=== PATIENT | male | born 1965 | race Caucasian/White ===

== ENCOUNTER 2019-04-25 12:07 | Inpatient (IN) | payer BC, MEDICARE ==
--- NOTE | 2019-04-25 12:54 | ED ---
General Adult HPI - General Source: patient, RN notes reviewed Mode of arrival: ambulatory Limitations: no limitations <Joe Batista - Last Filed: 04/25/19 12:49> <Buddy Cadena - Last Filed: 04/25/19 16:45> - General Stated complaint: poss kidney problems/high blood pressure Time Seen by Provider: 04/25/19 12:48 - History of Present Illness Initial comments: 54 year old male presents to the emergency Department with chief complaint of dizziness, nausea, headaches, possible renal failure. Patient was seen by PCP secondary not feeling well. Patient states they did a urinalysis and they're concerned that his urine was very dark. He has no history of kidney disease or liver disease. Patient states symptoms clearing of the left ear. (Joe Batista) 54-year-old male with chief complaint of dark urine. Patient states that for the past 2 days his urine has been the color of colon. He states all he drinks his Coca-Cola and Werners. He has no history of renal disease no history of liver disease. Second complaint of headache which has been present for the past 24 hours. Left-sided parietal and occipital headache. No focal numbness or weakness. No vision changes. Patient denies significant vomiting or diarrhea. He has a normal appetite. No fever. (Buddy Cadena) - Related Data Allergies Allergy/AdvReac Type Severity Reaction Status Date / Time No Known Allergies Allergy Verified 04/25/19 12:50 Review of Systems ROS Other: All systems not noted in ROS Statement are negative. <Joe Batista - Last Filed: 04/25/19 12:49> ROS Other: All systems not noted in ROS Statement are negative. <Buddy Cadena - Last Filed: 04/25/19 16:45> ROS Statement: Those systems with pertinent positive or pertinent negative responses have been documented in the HPI. General Exam General appearance: alert, in no apparent distress Head exam: Present: atraumatic, normocephalic Eye exam: Present: normal appearance, PERRL ENT exam: Present: mucous membranes dry Neck exam: Present: normal inspection, tenderness Respiratory exam: Present: normal lung sounds bilaterally. Absent: respiratory distress, wheezes Cardiovascular Exam: Present: regular rate, normal rhythm GI/Abdominal exam: Present: soft. Absent: distended, tenderness, guarding Extremities exam: Present: normal inspection, normal capillary refill. Absent: pedal edema, joint swelling Neurological exam: Present: alert, oriented X3, CN II-XII intact. Absent: motor sensory deficit Psychiatric exam: Present: normal affect, normal mood Skin exam: Present: warm, dry, intact. Absent: cyanosis, diaphoretic <Buddy Cadena - Last Filed: 04/25/19 16:45> Course Vital Signs 04/25/19 04/25/19 12:48 15:10 Temperature 98.9 F 99.6 F Pulse Rate 86 Respiratory 20 16 Rate Blood Pressure 118/73 174/94 O2 Sat by Pulse 94 L Oximetry Medical Decision Making - Lab Data Result diagrams: 04/25/19 13:34 04/25/19 13:34 <Buddy Cadena - Last Filed: 04/25/19 16:45> - Medical Decision Making 54-year-old male presenting with dark urine. Patient has urinalysis which is positive for large amount of blood with no significant RBCs. This is concerning for myoglobinuria. Further workup reveals rhabdomyolysis with elevated creatinine kinase of 58,463. Patient has leukocytosis of 16. He has a mildly elevated total bili at 1.8. He has transaminitis with AST 1778, ALT 206. He has normal kidney function. He had complained of a headache, CT was obtained is negative for intracranial hemorrhage. Ultrasound negative for diarrhea, bile duct, no signs of acute cholecystitis. Given 2 L normal saline, started on sodium bicarb infusion at a rate of 200 mL/h. He will have close monitoring of import and output. He's admitted to internal medicine, with nephrology placed on consult. Hepatitis panel will be obtained Patient is currently on statin that uncertain of which statin he is on. (Buddy Cadena) - Lab Data Lab Results 04/25/19 04/25/19 04/25/19 Range/Units 13:34 13:34 13:34 WBC 16.0 H (3.8-10.6) k/uL RBC 5.43 (4.30-5.90) m/uL Hgb 17.1 (13.0-17.5) gm/dL Hct 47.5 (39.0-53.0) % MCV 87.6 (80.0-100.0) fL MCH 31.6 (25.0-35.0) pg MCHC 36.0 (31.0-37.0) g/dL RDW 12.4 (11.5-15.5) % Plt Count 192 (150-450) k/uL Neutrophils % 88 % Lymphocytes % 7 % Monocytes % 4 % Eosinophils % 0 % Basophils % 0 % Neutrophils # 14.0 H (1.3-7.7) k/uL Lymphocytes # 1.1 (1.0-4.8) k/uL Monocytes # 0.6 (0-1.0) k/uL Eosinophils # 0.1 (0-0.7) k/uL Basophils # 0.0 (0-0.2) k/uL PT (9.0-12.0) sec INR (<1.2) APTT (22.0-30.0) sec Sodium 140 (137-145) mmol/L Potassium 3.5 (3.5-5.1) mmol/L Chloride 102 (98-107) mmol/L Carbon Dioxide 29 (22-30) mmol/L Anion Gap 9 mmol/L BUN 12 (9-20) mg/dL Creatinine 0.83 (0.66-1.25) mg/dL Est GFR (CKD-EPI)AfAm >90 (>60 ml/min/1.73 sqM) Est GFR (CKD-EPI)NonAf >90 (>60 ml/min/1.73 sqM) Glucose 112 H (74-99) mg/dL Plasma Lactic Acid Edward 2.0 (0.7-2.0) mmol/L Calcium 9.5 (8.4-10.2) mg/dL Total Bilirubin 1.8 H (0.2-1.3) mg/dL AST 1778 H (17-59) U/L ALT 216 H (4-49) U/L Alkaline Phosphatase 104 (38-126) U/L Creatine Kinase (55-170) U/L Total Protein 7.2 (6.3-8.2) g/dL Albumin 4.7 (3.5-5.0) g/dL Lipase (23-300) U/L Urine Color Urine Appearance (Clear) Urine pH (5.0-8.0) Ur Specific [place] (1.001-1.035) Urine Protein (Negative) Urine Glucose (UA) (Negative) Urine Ketones (Negative) Urine Blood (Negative) Urine Nitrite (Negative) Urine Bilirubin (Negative) Urine Urobilinogen (<2.0) mg/dL Ur Leukocyte Esterase (Negative) Urine RBC (0-5) /hpf Urine WBC (0-5) /hpf Ur Squamous Epith Cells (0-4) /hpf Amorphous Sediment (None) /hpf Urine Bacteria (None) /hpf Hyaline Casts (0-2) /lpf Urine Mucus (None) /hpf Acetaminophen <10.0 ug/mL 04/25/19 04/25/19 04/25/19 Range/Units 13:34 13:34 13:34 WBC (3.8-10.6) k/uL RBC (4.30-5.90) m/uL Hgb (13.0-17.5) gm/dL Hct (39.0-53.0) % MCV (80.0-100.0) fL MCH (25.0-35.0) pg MCHC (31.0-37.0) g/dL RDW (11.5-15.5) % Plt Count (150-450) k/uL Neutrophils % % Lymphocytes % % Monocytes % % Eosinophils % % Basophils % % Neutrophils # (1.3-7.7) k/uL Lymphocytes # (1.0-4.8) k/uL Monocytes # (0-1.0) k/uL Eosinophils # (0-0.7) k/uL Basophils # (0-0.2) k/uL PT 10.9 (9.0-12.0) sec INR 1.0 (<1.2) APTT 22.7 (22.0-30.0) sec Sodium (137-145) mmol/L Potassium (3.5-5.1) mmol/L Chloride (98-107) mmol/L Carbon Dioxide (22-30) mmol/L Anion Gap mmol/L BUN (9-20) mg/dL Creatinine (0.66-1.25) mg/dL Est GFR (CKD-EPI)AfAm (>60 ml/min/1.73 sqM) Est GFR (CKD-EPI)NonAf (>60 ml/min/1.73 sqM) Glucose (74-99) mg/dL Plasma Lactic Acid Edward (0.7-2.0) mmol/L Calcium (8.4-10.2) mg/dL Total Bilirubin (0.2-1.3) mg/dL AST (17-59) U/L ALT (4-49) U/L Alkaline Phosphatase (38-126) U/L Creatine Kinase 41207 H* (55-170) U/L Total Protein (6.3-8.2) g/dL Albumin (3.5-5.0) g/dL Lipase (23-300) U/L Urine Color Light Red Urine Appearance Clear (Clear) Urine pH 6.0 (5.0-8.0) Ur Specific [place] 1.011 (1.001-1.035) Urine Protein 2+ H (Negative) Urine Glucose (UA) Negative (Negative) Urine Ketones Negative (Negative) Urine Blood Large H (Negative) Urine Nitrite Negative (Negative) Urine Bilirubin Negative (Negative) Urine Urobilinogen <2.0 (<2.0) mg/dL Ur Leukocyte Esterase Negative (Negative) Urine RBC 1 (0-5) /hpf Urine WBC 2 (0-5) /hpf Ur Squamous Epith Cells <1 (0-4) /hpf Amorphous Sediment Rare H (None) /hpf Urine Bacteria Rare H (None) /hpf Hyaline Casts 1 (0-2) /lpf Urine Mucus Rare H (None) /hpf Acetaminophen ug/mL 04/25/19 Range/Units 13:34 WBC (3.8-10.6) k/uL RBC (4.30-5.90) m/uL Hgb (13.0-17.5) gm/dL Hct (39.0-53.0) % MCV (80.0-100.0) fL MCH (25.0-35.0) pg MCHC (31.0-37.0) g/dL RDW (11.5-15.5) % Plt Count (150-450) k/uL Neutrophils % % Lymphocytes % % Monocytes % % Eosinophils % % Basophils % % Neutrophils # (1.3-7.7) k/uL Lymphocytes # (1.0-4.8) k/uL Monocytes # (0-1.0) k/uL Eosinophils # (0-0.7) k/uL Basophils # (0-0.2) k/uL PT (9.0-12.0) sec INR (<1.2) APTT (22.0-30.0) sec Sodium (137-145) mmol/L Potassium (3.5-5.1) mmol/L Chloride (98-107) mmol/L Carbon Dioxide (22-30) mmol/L Anion Gap mmol/L BUN (9-20) mg/dL Creatinine (0.66-1.25) mg/dL Est GFR (CKD-EPI)AfAm (>60 ml/min/1.73 sqM) Est GFR (CKD-EPI)NonAf (>60 ml/min/1.73 sqM) Glucose (74-99) mg/dL Plasma Lactic Acid Edward (0.7-2.0) mmol/L Calcium (8.4-10.2) mg/dL Total Bilirubin (0.2-1.3) mg/dL AST (17-59) U/L ALT (4-49) U/L Alkaline Phosphatase (38-126) U/L Creatine Kinase (55-170) U/L Total Protein (6.3-8.2) g/dL Albumin (3.5-5.0) g/dL Lipase 99 (23-300) U/L Urine Color Urine Appearance (Clear) Urine pH (5.0-8.0) Ur Specific [place] (1.001-1.035) Urine Protein (Negative) Urine Glucose (UA) (Negative) Urine Ketones (Negative) Urine Blood (Negative) Urine Nitrite (Negative) Urine Bilirubin (Negative) Urine Urobilinogen (<2.0) mg/dL Ur Leukocyte Esterase (Negative) Urine RBC (0-5) /hpf Urine WBC (0-5) /hpf Ur Squamous Epith Cells (0-4) /hpf Amorphous Sediment (None) /hpf Urine Bacteria (None) /hpf Hyaline Casts (0-2) /lpf Urine Mucus (None) /hpf Acetaminophen ug/mL Disposition <Joe Batista - Last Filed: 04/25/19 12:49> Is patient prescribed a controlled substance at d/c from ED?: No Time of Disposition: 16:45 Decision to Admit Reason: Admit from EC Decision Date: 04/25/19 Decision Time: 16:45 <Buddy Cadena - Last Filed: 04/25/19 16:45> Clinical Impression: Rhabdomyolysis, Hepatitis Disposition: ADMITTED IP TO THIS HOSP Condition: Stable Referrals: Paul Kenny MD [Primary Care Provider] - 1-2 days
[2019-04-25] MEDS ORDERED: SODIUM CHLORIDE 0.9% 1,000 ML IV ONE ×2 (13:23→16:13)
[2019-04-25 14:06] LABS: Basophils % (A) 0 %; Eosinophils # (A) 0.1 k/uL (0-0.7); Eosinophils % (A) 0 %; HCT 47.5 % (39.0-53.0); HGB 17.1 gm/dL (13.0-17.5); Lymphocytes # (A) 1.1 k/uL (1.0-4.8); Lymphocytes % (A) 7 %; MCH 31.6 pg (25.0-35.0); MCV 87.6 fL (80.0-100.0); Mean Platelet Volume 7.7; Monocytes # (A) 0.6 k/uL (0-1.0); Monocytes % (A) 4 %; Neutrophils % (A) 88 %; Platelet Count 192 k/uL (150-450); RBC 5.43 m/uL (4.30-5.90); RDW 12.4 % (11.5-15.5)
--- NOTE | 2019-04-25 14:07 | CT ---
EXAMINATION TYPE: CT brain wo con DATE OF EXAM: 04/25/2019 COMPARISON: 07/06/2012 INDICATION: [place] something pop in head, VALDEZ since DLP: 1084.4 mGycm, Automated exposure control for dose reduction was used. CONTRAST: None CT of the brain is performed utilizing 3 mm thick sections through the posterior fossa and 3 mm thick sections through the remaining calvarium. Study is performed within 24 hours of arrival to the hosp [facility]. No abnormal hyperdensity is present to suggest an acute intracranial hemorrhage. No suspicious subara chnoid hemorrhage is identified. Prepontine cistern appears normal. No mass lesion is evident. No acute infarcts are evident. Ventricles and sulci are appropriate for the patient age. Paranasal sinuses and mastoid air cells within the [id number] are clear. IMPRESSIONS: 1. Normal CT Brain
[2019-04-25 14:12] LABS: Amorphous Sediment,Urine Rare /hpf; Appearance,Urine Clear (Clear); Bacteria,Urine Rare /hpf; Bilirubin,Urine Negative (Negative); Blood,Urine Large (Negative); Color,Urine Light Red; Glucose,Urine (UA) Negative (Negative); Hyaline Casts,Urine 1 /lpf (0-2); Ketones,Urine Negative (Negative); Leukocyte Esterase,Urine Negative (Negative); Mucus,Urine Rare /hpf; Nitrite,Urine Negative (Negative); Protein,Urine 2+ (Negative); RBC,Urine 1 /hpf (0-5); Specific Gravity,Urine 1.011 (1.001-1.035); Squamous Epithelial Cell,Urine <1 /hpf (0-4); Urobilinogen,Urine <2.0 mg/dL (<2.0); WBC,Urine 2 /hpf (0-5)
[2019-04-25 14:15] LABS: ALT 216 U/L (4-49); Acetaminophen <10.0 ug/mL; African American GFR (CKD) >90 (>60 ml/min/1.73 sqM); Albumin 4.7 g/dL (3.5-5.0); Alkaline Phosphatase 104 U/L (38-126); Anion Gap 9 mmol/L; Blood Urea Nitrogen 12 mg/dL (9-20); Calcium 9.5 mg/dL (8.4-10.2); Carbon Dioxide 29 mmol/L (22-30); Chloride 102 mmol/L (98-107); Glucose 112 mg/dL (74-99); Non-African American GFR(CKD) >90 (>60 ml/min/1.73 sqM); Potassium 3.5 mmol/L (3.5-5.1); Sodium 140 mmol/L (137-145); Total Bilirubin 1.8 mg/dL (0.2-1.3); Total Protein 7.2 g/dL (6.3-8.2)
[2019-04-25 14:22] LABS: Partial Thromboplastin Time 22.7 sec (22.0-30.0); Prothrombin Time 10.9 sec (9.0-12.0)
[2019-04-25 14:48] LABS: AST 1778 U/L (17-59)
[2019-04-25] MEDS ORDERED: SODIUM CHLORIDE 0.9% 1,000 ML IV SCH (15:15)
--- NOTE | 2019-04-25 16:17 | US ---
EXAMINATION TYPE: US gallbladder DATE OF EXAM: 04/25/2019 COMPARISON: NONE CLINICAL HISTORY: ab pain. Pain, discomfort EXAM MEASUREMENTS: Liver Length: 15.4 cm Gallbladder Wall: 0.2 cm CBD: 0.4 cm Right Kidney: 10.9 x 5.2 x 6.0 cm Limited exam due to patient body habitus Pancreas: Obscured by bowel gas Liver: Scanned through ribs Gallbladder: Multiple nonshadowing echogenic foci seen adjacent to wall, nonmobile, possible multipl e polyps or cholelithiasis. Evidence for sonographic Krishnamurthy's sign: neg CBD: wnl Right Kidney: wnl IMPRESSION: 1. Cholelithiasis and/or gallbladder polyps. Suspicious changes for acute cholecystitis is not eviden t. 2. Mild fatty infiltration liver.
[2019-04-25] MEDS ORDERED: NALOXONE 0.4 MG/ML 1 ML VIAL IV PRN (16:37)
[2019-04-25] MEDS: LORazepam 1 MG TAB PO PRN (20:02)
[2019-04-25] MEDS: DEXTROSE 5% IN WATER 1,000 ML with SODIUM BICARB (1 MEQ/ML) 150 ML IV SCH (21:19)
--- NOTE | 2019-04-25 22:50 | P.HPIM ---
History of Present Illness H&P Date: 04/25/19 Chief Complaint: Dark urine History of presenting complaint: This is a 54-year-old patient of Dr. lainez from [place]. Chronic stable medical conditions include hypertension, hyperlipidemia, bipolar disorder. Patient is at home with his mother and does some intermittent jobs. He shouldn't drinks coke all the time with or drink any water and only has 1 meal a day. Patient also not followed up as a psychiatrist for a while. Patient went to see his family doctor as without feeling well. Was having very dark colored urine like the color of Pepsi. Patient is found to have abnormal labs including very elevated CPK and sent to the ER. Patient's CPK was found to be more than 50,000. Patient started on a bicarbonate drip and IV fluids. To the ER. Patient's mother is at the bedside. Patient feels his bipolar disorder is becoming well uncontrolled with extremely anxious. Her mother things that patient may be overmedicated. Patient is also having ringing in the ears which she's had for some time. Apparently his also been having auditory hallucinations. Patient rather restless during the interview process. Patient has been taking his current lipid-lowering medications for 5-10 years Review of systems: GEN.: Tired EYES: None HEENT: Ringing in the ears and decreased hearing in the left ear NECK: None RESPIRATORY: None CARDIOVASCULAR: None GASTROINTESTINAL: None GENITOURINARY: None MUSCULOSKELETAL: Generalized achiness in the muscles LYMPHATICS: None HEMATOLOGICAL: None PSYCHIATRY: Very anxious NEUROLOGICAL: None Past medical history to include: Hypertension, hyperlipidemia, bipolar Social history: Does still smoke or drink alcohol. Lives with mother. Used to work with [employer] previously. Family history: Reviewed, noncontributory to presentation Physical examination: VITAL SIGNS: 98.9, 86, 20, 1180 73, 94% room air GENERAL: BMI 30.5, laying bed restless. EYES: Pupils equal. Conjunctiva normal. HEENT: External appearance of nose and ears normal, oral cavity grossly normal decreased hearing. NECK: JVD not raised; masses not palpable. HEART: First and second heart sounds are normal; no edema. LUNGS: Respiratory rate normal; clear to auscultation. ABDOMEN: Soft, nontender, liver spleen not palpable, no masses palpable. PSYCH: Alert and oriented x3; mood and affect anxious and restless in bedl. NEUROLOGICAL: Cranial nerves grossly intact; no facial asymmetry, power and sensation grossly intact. LYMPHATICS: No lymph nodes palpable in the axilla and neck INVESTIGATIONS, reviewed in the clinical context: White count 16 hemoglobin 7.1 potassium 3.5 creatinine 0.83 total bilirubin 1.8 AST 1778, ALT 216 Creatinine kinase 95162 Abdominal ultrasound-shows multiple gallstones suggestive and some mild fatty infiltration of the liver Assessment: -Acute severe rhabdomyolysis in a patient who drinks Coca-Cola products 24 hours a day does not drink water. Patient also takes lipid-lowering medication that he is taking for a few years. -Obesity BMI 30.5 -Acute hepatitis, could be ischemic.- -Bipolar disorder uncontrolled with uncontrolled anxiety Plan: Laura started on IV fluids at 200 mL an hour. Electrolytes will be followed closely. Both zetia and Lipitor have been discontinued. Consultation is being made to nephrology, psychiatry also get GI opinion. Care was discussed with the patient and mother. Questions were answered. Lovenox for DVT prophylaxis. Past Medical History Past Medical History: Hypertension History of Any Multi-Drug Resistant Organisms: None Reported Past Surgical History: No Surgical Hx Reported Smoking Status: Never smoker Past Alcohol Use History: None Reported Past Drug Use History: None Reported Medications and Allergies Home Medications Medication Instructions Recorded Confirmed Type Atorvastatin [Lipitor] 20 mg PO DAILY 04/25/19 04/25/19 History Ezetimibe [Zetia] 10 mg PO DAILY 04/25/19 04/25/19 History LORazepam [Ativan] 1 mg PO BID PRN 04/25/19 04/25/19 History Metoprolol Succinate (ER) [Toprol 50 mg PO DAILY 04/25/19 04/25/19 History Xl] Sertraline [Zoloft] 200 mg PO DAILY 04/25/19 04/25/19 History Topiramate [Topamax] 25 mg PO DAILY 04/25/19 04/25/19 History buPROPion HCL [Wellbutrin XL] 150 mg PO DAILY 04/25/19 04/25/19 History Allergies Allergy/AdvReac Type Severity Reaction Status Date / Time No Known Allergies Allergy Verified 04/25/19 18:10 Physical Exam Vitals: Vital Signs Temp Pulse Pulse Resp BP BP Pulse Ox 04/25/19 22:05 99 F 83 18 151/77 97 04/25/19 19:09 16 04/25/19 17:13 98.9 F 80 16 168/87 96 04/25/19 15:10 99.6 F 16 174/94 04/25/19 12:48 98.9 F 86 20 118/73 94 L Intake and Output 04/25/19 04/25/19 04/25/19 06:59 14:59 22:59 Intake Total 1800 Balance 1800 Intake: Amount of Fluid Infused ( 1800 ml) Other: Weight 102.058 kg Results CBC & Chem 7: 04/25/19 13:34 04/25/19 13:34 Labs: Abnormal Lab Results - Last 24 Hours (Table) 04/25/19 04/25/19 04/25/19 Range/Units 13:34 13:34 13:34 WBC 16.0 H (3.8-10.6) k/uL Neutrophils # 14.0 H (1.3-7.7) k/uL Glucose 112 H (74-99) mg/dL Total Bilirubin 1.8 H (0.2-1.3) mg/dL AST 1778 H (17-59) U/L ALT 216 H (4-49) U/L Creatine Kinase (55-170) U/L Urine Protein 2+ H (Negative) Urine Blood Large H (Negative) Amorphous Sediment Rare H (None) /hpf Urine Bacteria Rare H (None) /hpf Urine Mucus Rare H (None) /hpf 04/25/19 Range/Units 13:34 WBC (3.8-10.6) k/uL Neutrophils # (1.3-7.7) k/uL Glucose (74-99) mg/dL Total Bilirubin (0.2-1.3) mg/dL AST (17-59) U/L ALT (4-49) U/L Creatine Kinase 37958 H* (55-170) U/L Urine Protein (Negative) Urine Blood (Negative) Amorphous Sediment (None) /hpf Urine Bacteria (None) /hpf Urine Mucus (None) /hpf
[2019-04-25] MEDS: ENOXAPARIN 40 MG/0.4 ML SYRINGE SQ SCH (23:43)
[2019-04-26] MEDS: LORazepam 1 MG TAB PO PRN ×3 (00:47→20:25)
[2019-04-26 06:21] LABS: Hepatitis A Antibody IgM Non-Reactive (Non-Reactive); Hepatitis B Core IgM Non-Reactive (Non-Reactive); Hepatitis B Surface Antigen Non-Reactive (Non-Reactive); Hepatitis C IgG Antibody Non-Reactive (Non-Reactive)
[2019-04-26] MEDS: DEXTROSE 5% IN WATER 1,000 ML with SODIUM BICARB (1 MEQ/ML) 150 ML IV SCH ×2 (07:20→09:31)
[2019-04-26] MEDS: TOPIRAMATE 25 MG TAB PO SCH (08:08)
[2019-04-26] MEDS: METOPROLOL SUCCINATE (ER) 50 MG TAB.ER.24H PO SCH (08:08)
[2019-04-26 08:51] LABS: Basophils % (A) 0 %; Eosinophils # (A) 0.1 k/uL (0-0.7); Eosinophils % (A) 0 %; HCT 43.7 % (39.0-53.0); HGB 15.5 gm/dL (13.0-17.5); Lymphocytes # (A) 1.6 k/uL (1.0-4.8); Lymphocytes % (A) 11 %; MCH 31.2 pg (25.0-35.0); MCHC 35.5 g/dL (31.0-37.0); MCV 87.9 fL (80.0-100.0); Mean Platelet Volume 7.5; Monocytes # (A) 0.8 k/uL (0-1.0); Monocytes % (A) 5 %; Neutrophils % (A) 82 %; Platelet Count 193 k/uL (150-450); RBC 4.97 m/uL (4.30-5.90); RDW 12.4 % (11.5-15.5); WBC 14.5 k/uL (3.8-10.6)
[2019-04-26] MEDS ORDERED: LORazepam 1 MG TAB PO STA (08:55)
[2019-04-26] MEDS ORDERED: ZIPRASIDONE 20 MG VIAL IM STA (08:55)
[2019-04-26] MEDS ORDERED: EZETIMIBE 10 MG TAB PO SCH (09:00)
[2019-04-26] MEDS ORDERED: SERTRALINE 100 MG TAB PO SCH (09:00)
[2019-04-26] MEDS ORDERED: ATORVASTATIN 20 MG TAB PO SCH (09:00)
[2019-04-26] MEDS ORDERED: buPROPion XL 150 MG TAB.ER.24H PO SCH (09:00)
[2019-04-26 09:05] LABS: ALT 270 U/L (4-49); African American GFR (CKD) >90 (>60 ml/min/1.73 sqM); Albumin 4.3 g/dL (3.5-5.0); Alkaline Phosphatase 87 U/L (38-126); Anion Gap 7 mmol/L; Blood Urea Nitrogen 11 mg/dL (9-20); Calcium 9.1 mg/dL (8.4-10.2); Carbon Dioxide 32 mmol/L (22-30); Chloride 102 mmol/L (98-107); Cholesterol 129 mg/dL (<200); Glucose 109 mg/dL (74-99); HDL Cholesterol 32 mg/dL (40-60); LDL Cholesterol,Calculated 57 mg/dL (0-99); Magnesium 2.1 mg/dL (1.6-2.3); Non-African American GFR(CKD) >90 (>60 ml/min/1.73 sqM); Phosphorus 3.3 mg/dL (2.5-4.5); Potassium 3.5 mmol/L (3.5-5.1); Sodium 141 mmol/L (137-145); Total Bilirubin 1.5 mg/dL (0.2-1.3); Total Protein 6.6 g/dL (6.3-8.2); Triglycerides 200 mg/dL (<150)
--- NOTE | 2019-04-26 11:04 | P.NPCON ---
History of Present Illness - Reason for Consult acute renal failure - History of Present Illness Reason for consultation: Rhabdomyolysis History of present illness: Patient is a 54-year-old male seen in consultation rhabdomyolysis. Patient presented to the hospital with generalized weakness as well as dizziness and nausea. Patient was seen by his PCP. He was noted to have dark urine. Patient is currently resting in bed. He was just given a dose of Geodon and is very difficult to awaken. History is mostly obtained from the chart. No fever or chills. Patient was started on bicarb drip overnight but had to be discontinued as he pulled out multiple IV lines. Patient actually wants to leave. He has a sitter at bedside. Patient's CK level was elevated at 58,463 on admission. Level from today is pending. Patient is not noted to be acidotic. Urinalysis reveals large blood without any RBCs this fits the picture of myoglobinuria. No nausea or vomiting. It appears he was taking Lipitor as well as Zetia at home. Both of those have been discontinued. No history of trauma. Patient's AST and ALT are also noted to be elevated. GFR is at baseline. Patient has history of bipolar disorder. From the record it appears that the patient doesn't drink well water but does drink significant amount of Coca-Cola. Vital signs are stable. General: The patient appeared well nourished and normally developed. HEENT: Head exam is unremarkable. Neck is without jugular venous distension. LUNGS: Lungs are clear to auscultation and percussion. Breath sounds decreased. HEART: Rate and Rhythm are regular. First and second heart sounds normal. No murmurs, rubs or gallops. ABDOMEN: Abdominal exam reveals normal bowel sounds. Non-tender and non- distended. No evidence of peritonitis. EXTREMITITES: No clubbing, cyanosis, or edema. Past Medical History Past Medical History: Hypertension History of Any Multi-Drug Resistant Organisms: None Reported Past Surgical History: No Surgical Hx Reported Past Anesthesia/Blood Transfusion Reactions: No Reported Reaction Smoking Status: Never smoker Past Alcohol Use History: None Reported Past Drug Use History: None Reported Medications and Allergies Home Medications Medication Instructions Recorded Confirmed Type Atorvastatin [Lipitor] 20 mg PO DAILY 04/25/19 04/25/19 History Ezetimibe [Zetia] 10 mg PO DAILY 04/25/19 04/25/19 History LORazepam [Ativan] 1 mg PO BID PRN 04/25/19 04/25/19 History Metoprolol Succinate (ER) [Toprol 50 mg PO DAILY 04/25/19 04/25/19 History Xl] Sertraline [Zoloft] 200 mg PO DAILY 04/25/19 04/25/19 History Topiramate [Topamax] 25 mg PO DAILY 04/25/19 04/25/19 History buPROPion HCL [Wellbutrin XL] 150 mg PO DAILY 04/25/19 04/25/19 History Allergies Allergy/AdvReac Type Severity Reaction Status Date / Time No Known Allergies Allergy Verified 04/25/19 18:10 Physical Exam Vitals: Vital Signs Temp Pulse Pulse Resp BP BP Pulse Ox 04/25/19 22:05 99 F 83 18 151/77 97 04/25/19 19:09 16 04/25/19 17:13 98.9 F 80 16 168/87 96 04/25/19 15:10 99.6 F 16 174/94 04/25/19 12:48 98.9 F 86 20 118/73 94 L Intake and Output 04/25/19 04/26/19 04/26/19 22:59 06:59 14:59 Intake Total 2800 3500 Balance 2800 3500 Intake: IV 1000 3500 Invasive Line 1 1000 3000 Invasive Line 2 500 Amount of Fluid Infused ( 1800 ml) Other: Voiding Method Toilet Toilet # Voids 1 Weight 102.058 kg Results - Lab Results Most recent lab results Calcium 9.1 mg/dL (8.4-10.2) 04/26/19 08:15 Phosphorus 3.3 mg/dL (2.5-4.5) 04/26/19 08:15 Magnesium 2.1 mg/dL (1.6-2.3) 04/26/19 08:15 04/26/19 08:15 04/26/19 08:15 Assessment and Plan Plan: Assessment: 1. Rhabdomyolysis secondary to Lipitor and Zetia. No record of any trauma or injuries. UA reveals large blood without any RBCs which fits with myoglobinuria seen in rhabdomyolysis. 2. Bipolar disorder. 3. Benign hypertension. 4. Transaminitis. Fatty infiltration of the liver noted on ultrasound. Hepatitis panel negative. GI has been consulted. Plan: Discontinue bicarbonate drip. Start normal saline at 150 mL an hour once IV line able to be placed. Follow-up morning CK level and repeat another one in the morning. Cassandra and aDnica held. Thank you for the consultation. I will continue to follow the patient with you during his hospital stay.
[2019-04-26 11:29] LABS: Creatine Kinase 41268 U/L (55-170)
[2019-04-26 11:58] LABS: AST 1944 U/L (17-59)
[2019-04-26] MEDS ORDERED: HALOPERIDOL LACTATE 5 MG/ML 1 ML VIAL IM PRN (15:32)
--- NOTE | 2019-04-26 15:33 | P.GSCN ---
History of Present Illness Consult date: 04/26/19 Reason for Consult: gallstones Requesting physician: Ted Babb History of present illness: CHIEF COMPLAINT: gallstones HISTORY OF PRESENT ILLNESS: 54 year old male who presented to the ER due to dark urine output after being evaluated at his PCP office. Patient was found to have elevated LFTs and a CK over 50,000. Abdominal US was obtained revealing gallstones. General surgery was consulted for further evaluation. Patient examined at the bedside. He denies abdominal pain. Denies nausea or vomiting. Denies known gallbladder disease or known history of gallstones. PAST MEDICAL HISTORY: See list. PAST SURGICAL HISTORY: See list. SOCIAL HISTORY: No illicit drug use. REVIEW OF SYSTEMS: CONSTITUTIONAL: Denies fever or chills. HEENT: Denies blurred vision, vision changes, or eye pain. Denies hemoptysis CARDIOVASCULAR: Denies chest pain or pressure. RESPIRATORY: No shortness of breath. GASTROINTESTINAL: Refer to HPI for pertinent findings HEMATOLOGIC: Denies bleeding disorders. GENITOURINARY: Denies any blood in urine. Reports dark urine. SKIN: Denies pruitis. Denies rash. PHYSICAL EXAM: VITAL SIGNS: Reviewed. GENERAL: Well-developed in no acute distress. HEENT: No sclera icterus. Extraocular movements grossly intact. Moist buccal mucosa. Head is atraumatic, normocephalic. ABDOMEN: Soft. Nondistended. Nontender. NEUROLOGIC: Alert and oriented. LABORATORY DATA: WBC 14.5. Hemoglobin 15.5. Platelet count 193. Sodium 141. Potassium 3.5. Lactic acid 2.0. Bilirubin 1.5. AST 1944. ALT 240. Creatinine kinase 41,268. IMAGING: Gallbladder ultrasound: Multiple non-shadowing echogenic foci seen adjacent wall. Nonmobile. Possible multiple polyps or cholelithiasis. No evidence of acute cholecystitis. ASSESSMENT: 1. Cholelithiasis 2. Leukocytosis 3. Hyperbilirubinemia 4. Transaminitis 5. Rhabdomyolysis PLAN: No immediate surgical intervention as patient is asymptomatic in regards to gallstones. Possible cholecystectomy in the future when patient is medically stable. Continue to monitor LFTs. GI on consult. Await input and recommendations Nurse practitioner note has been reviewed by physician. Signing provider agrees with the documented findings, assessment, and plan of care. Past Medical History Past Medical History: Hypertension History of Any Multi-Drug Resistant Organisms: None Reported Past Surgical History: No Surgical Hx Reported Past Anesthesia/Blood Transfusion Reactions: No Reported Reaction Smoking Status: Never smoker Past Alcohol Use History: None Reported Past Drug Use History: None Reported Medications and Allergies Home Medications Medication Instructions Recorded Confirmed Type Atorvastatin [Lipitor] 20 mg PO DAILY 04/25/19 04/25/19 History Ezetimibe [Zetia] 10 mg PO DAILY 04/25/19 04/25/19 History LORazepam [Ativan] 1 mg PO BID PRN 04/25/19 04/25/19 History Metoprolol Succinate (ER) [Toprol 50 mg PO DAILY 04/25/19 04/25/19 History Xl] Sertraline [Zoloft] 200 mg PO DAILY 04/25/19 04/25/19 History Topiramate [Topamax] 25 mg PO DAILY 04/25/19 04/25/19 History buPROPion HCL [Wellbutrin XL] 150 mg PO DAILY 04/25/19 04/25/19 History Allergies Allergy/AdvReac Type Severity Reaction Status Date / Time chicken derived [Chicken] Allergy Nausea & Verified 04/26/19 11:31 Vomiting & Diarrhea Pork/Porcine Containing Allergy Nausea & Verified 04/26/19 11:31 Products Vomiting & [Pork] Diarrhea Poultry [Arminto] Allergy Nausea & Verified 04/26/19 11:31 Vomiting & Diarrhea Surgical - Exam Vital Signs Temp Pulse Resp BP Pulse Ox 98.9 F 86 20 118/73 94 L 04/25/19 12:48 04/25/19 12:48 04/25/19 12:48 04/25/19 12:48 04/25/19 12:48 Results - Labs 04/26/19 08:15 04/26/19 08:15 Abnormal Lab Results - Last 24 Hours (Table) 04/25/19 04/25/19 04/25/19 Range/Units 13:34 13:34 13:34 WBC (3.8-10.6) k/uL Neutrophils # (1.3-7.7) k/uL Carbon Dioxide (22-30) mmol/L Glucose 112 H (74-99) mg/dL Total Bilirubin 1.8 H (0.2-1.3) mg/dL AST 1778 H (17-59) U/L ALT 216 H (4-49) U/L Creatine Kinase 75770 H* (55-170) U/L Triglycerides (<150) mg/dL HDL Cholesterol (40-60) mg/dL Urine Protein 2+ H (Negative) Urine Blood Large H (Negative) Amorphous Sediment Rare H (None) /hpf Urine Bacteria Rare H (None) /hpf Urine Mucus Rare H (None) /hpf 04/26/19 04/26/19 Range/Units 08:15 08:15 WBC 14.5 H (3.8-10.6) k/uL Neutrophils # 12.0 H (1.3-7.7) k/uL Carbon Dioxide 32 H (22-30) mmol/L Glucose 109 H (74-99) mg/dL Total Bilirubin 1.5 H (0.2-1.3) mg/dL AST 1944 H (17-59) U/L ALT 270 H (4-49) U/L Creatine Kinase 23264 H* (55-170) U/L Triglycerides 200 H (<150) mg/dL HDL Cholesterol 32 L (40-60) mg/dL Urine Protein (Negative) Urine Blood (Negative) Amorphous Sediment (None) /hpf Urine Bacteria (None) /hpf Urine Mucus (None) /hpf Diabetes panel 04/25/19 04/26/19 Range/Units 13:34 08:15 Sodium 140 141 (137-145) mmol/L Potassium 3.5 3.5 (3.5-5.1) mmol/L Chloride 102 102 (98-107) mmol/L Carbon Dioxide 29 32 H (22-30) mmol/L BUN 12 11 (9-20) mg/dL Creatinine 0.83 0.83 (0.66-1.25) mg/dL Glucose 112 H 109 H (74-99) mg/dL Calcium 9.5 9.1 (8.4-10.2) mg/dL AST 1778 H 1944 H (17-59) U/L ALT 216 H 270 H (4-49) U/L Alkaline Phosphatase 104 87 (38-126) U/L Total Protein 7.2 6.6 (6.3-8.2) g/dL Albumin 4.7 4.3 (3.5-5.0) g/dL Triglycerides 200 H (<150) mg/dL HDL Cholesterol 32 L (40-60) mg/dL Calcium panel 04/25/19 04/26/19 Range/Units 13:34 08:15 Calcium 9.5 9.1 (8.4-10.2) mg/dL Phosphorus 3.3 (2.5-4.5) mg/dL Albumin 4.7 4.3 (3.5-5.0) g/dL Pituitary panel 04/25/19 04/26/19 Range/Units 13:34 08:15 Sodium 140 141 (137-145) mmol/L Potassium 3.5 3.5 (3.5-5.1) mmol/L Chloride 102 102 (98-107) mmol/L Carbon Dioxide 29 32 H (22-30) mmol/L BUN 12 11 (9-20) mg/dL Creatinine 0.83 0.83 (0.66-1.25) mg/dL Glucose 112 H 109 H (74-99) mg/dL Calcium 9.5 9.1 (8.4-10.2) mg/dL Adrenal panel 04/25/19 04/26/19 Range/Units 13:34 08:15 Sodium 140 141 (137-145) mmol/L Potassium 3.5 3.5 (3.5-5.1) mmol/L Chloride 102 102 (98-107) mmol/L Carbon Dioxide 29 32 H (22-30) mmol/L BUN 12 11 (9-20) mg/dL Creatinine 0.83 0.83 (0.66-1.25) mg/dL Glucose 112 H 109 H (74-99) mg/dL Calcium 9.5 9.1 (8.4-10.2) mg/dL Total Bilirubin 1.8 H 1.5 H (0.2-1.3) mg/dL AST 1778 H 1944 H (17-59) U/L ALT 216 H 270 H (4-49) U/L Alkaline Phosphatase 104 87 (38-126) U/L Total Protein 7.2 6.6 (6.3-8.2) g/dL Albumin 4.7 4.3 (3.5-5.0) g/dL
--- NOTE | 2019-04-26 15:48 | P.CN ---
Psychiatric Consult - . Consult date: 04/26/19 Consult:: 04/26/19 15:33 IDENTIFYING DATA: This patient is a 54-year-old male who currently lives with his mother is and has one child. Patient is a retired automobile and property underwriter. HISTORY OF PRESENT ILLNESS: The patient presented to the hospital with dizziness, nausea headache and history of dark urine. Patient was found to have rhabdomyolysis with elevated creatinine kinase and was agitated and has transaminitis. Computed tomography scan of patient's head was negative. Nurse taking care of patient claims that patient has been trying to leave has been grossly delusional and needed a Geodon IM dose this morning for agitation. Mother was seen at the bedside and was agreeable to speak to automobile and property underwriter. Mother states that patient has been dealing with "bipolar schizophrenia" for many years and has not been following up with his outpatient psychiatrist. Mother claims that she does not think patient has been taking his medication and has been "secretive". She states that he has not been sleeping for the past week and has been delusional and speaking about political conspiracies more. She also states that a few nights ago patient woke up from a nightmare and states that she told her that "something popped in my head and I hear voices from outer space". Patient was also noted to be disorganized and paranoid on the medical floors believing that she needed to stay away from metal as the government is trying to track a device in people's necks. Patient was asleep however was arousable and agreeable to speak to automobile and property underwriter at the bedside. He was illogical and disorganized in his thoughts and perseverated on political topics and spoke about government corruption. Patient was inappropriate with most of his answers and had poor insight and judgment. At this time patient denies any suicidal or homical ideations, intent or plan. Patient denies any auditory, visual hallucinations. Patient denied any recreational drug use or any cigarettes or alcohol. PAST PSYCHIATRIC HISTORY: Patient has a history of psychosis and has not been following up with his outpatient psychiatrist Dr. Padilla. Patient was on several medications including bupropion and Zoloft and online herbal/organic meds which she had bought. As per mother, patient had a psychotic break in his early 20s and this was the last time he was hospitalized in a psychiatric hospital. Patient denies any previous suicide attempts. PAST MEDICAL HISTORY: Hypertension. ALLERGIES: as per EMR. CHEMICAL DEPENDENCY HISTORY: as per HPI. FAMILY PSYCHIATRIC/SUBSTANCE USE HISTORY: Mother states that she has bipolar along with her mother. She also claims that there is a history of psychosis on patient's father's side. SOCIAL HISTORY: Patient was born and raised in [facility] and moved to [place]. Patient completed high school and finished college. He worked as a automobile and property underwriter and is now retired. Patient is and has 1 kid and currently lives with his mother. MENTAL STATUS EXAM: General Appearance: Patient appears to be stated age is overweight, alert, attempts to cooperate. Poor hygiene and grooming. Behavior: Patient is calmly lying in bed without any agitated behavior. Speech: Patient's speech is fluent and nonpressured. Perseverates on politics and delusions Mood/Affect: Patient reports their mood is "ok", affect is congruent Suicidality/Homicidality: Patient denies having any suicidal or homicidal ideation intent or plan. Perceptions: Patient denies any auditory or visual hallucinations. Though content/process: Patient is grossly delusional and perseverates on political corruption and metal in his neck Memory and concentration: AOX3, grossly intact for the purposes of this session. Can spell "WORLD" backwards Judgment and insight: Poor/impulsive. IMPRESSIONS: Psychosis unspecified, rule out secondary to medications History of schizoaffective disorder PLAN: -Would recommend the following medication changes/additions: We'll start Risperdal 1 mg twice a day for psychosis/mood stabilization. When necessary Haldol when needed for severe agitation. Ativan when necessary for anxiety. -Discontinued patient's antidepressants at this time and will reevaluate her necessity at a later time. -Continue 1:1 sitter for safety -Cannot leave AMA at this time. Patient will need a petition and certification if attempting to leave AMA. -Will continue to follow along as patient is being medically treated for rhabdomyolysis and transaminitis -When medically stable, we will reevaluate patient for possible transfer to psychiatric unit for further treatment.
[2019-04-26] MEDS: risperiDONE 1 MG TAB PO SCH ×2 (16:00→20:25)
[2019-04-26] MEDS: SODIUM CHLORIDE 0.9% 1,000 ML IV SCH ×2 (17:46→23:45)
[2019-04-26] MEDS: MELATONIN 5 MG TABLET PO SCH (20:25)
[2019-04-26] MEDS: ENOXAPARIN 40 MG/0.4 ML SYRINGE SQ SCH (20:25)
--- NOTE | 2019-04-27 01:05 | P.PN ---
Progress Note - Text Progress Note Date: 04/26/19 Chief Complaint: Dark urine Interval history: This is a 54-year-old patient of Dr. lainez from [place]. Chronic stable medical conditions include hypertension, hyperlipidemia, bipolar disorder. Patient is at home with his mother and does some intermittent jobs. He shouldn't drinks coke all the time with or drink any water and only has 1 meal a day. Patient also not followed up as a psychiatrist for a while. Patient went to see his family doctor as without feeling well. Was having very dark colored urine like the color of Pepsi. Patient is found to have abnormal labs including very elevated CPK and sent to the ER. Patient's CPK was found to be more than 50,000. Patient started on a bicarbonate drip and IV fluids. To the ER. Patient's mother is at the bedside. Patient feels his bipolar disorder is becoming well uncontrolled with extremely anxious. Her mother things that patient may be overmedicated. Patient is also having ringing in the ears which she's had for some time. Apparently his also been having auditory hallucinations. Patient rather restless during the interview process. Patient has been taking his current lipid-lowering medications for 5-10 years Admitted with-severe rhabdomyolysis, psychosis, delirium. Patient was started on IV fluids bicarbonate drip. Today-this morning patient is very agitated wanted to leave delirium psychotic. Give the patient 20 mg Geodon IM. Patient's alone after that. When I came to see the patient he was resting sleeping. Mother was at the bedside. Prognosis is systems could not be done as patient is sleeping when Geodon Active Medications Enoxaparin Sodium (Lovenox) 40 mg SQ DAILY@2100 [facility] Last Admin: 04/26/19 20:25 Dose: 40 mg Documented by: Haloperidol Lactate (Haldol) 4 mg IM Q6HR PRN PRN Reason: Agitation or Acute Psychosis Sodium Chloride (Saline 0.9%) 1,000 mls @ 150 mls/hr IV .Q6H40M [facility] Last Admin: 04/26/19 23:45 Dose: Not Given Documented by: Lorazepam (Ativan) 1 mg PO BID PRN PRN Reason: Anxiety Last Admin: 04/26/19 20:25 Dose: 1 mg Documented by: Melatonin (Melatonin) 5 mg PO HS [facility] Last Admin: 04/26/19 20:25 Dose: 5 mg Documented by: Metoprolol Succinate (Toprol Xl) 50 mg PO DAILY [facility] Last Admin: 04/26/19 08:08 Dose: 50 mg Documented by: Naloxone HCl (Narcan) 0.2 mg IV Q2M PRN PRN Reason: Opioid Reversal Risperidone (Risperdal) 1 mg PO BID [facility] Last Admin: 04/26/19 20:25 Dose: 1 mg Documented by: Topiramate (Topamax) 25 mg PO DAILY [facility] Last Admin: 04/26/19 08:08 Dose: 25 mg Documented by: Physical examination: VITAL SIGNS: 97.9, 73, 16, 127/75, 95% GENERAL: Laying in bed somnolent EYES: Pupils equal. Conjunctiva normal. HEENT: External appearance of nose and ears normal, oral cavity grossly normal decreased hearing. NECK: JVD not raised; masses not palpable. HEART: First and second heart sounds are normal; no edema. LUNGS: Respiratory rate normal; clear to auscultation. ABDOMEN: Soft, nontender, liver spleen not palpable, no masses palpable. PSYCH: Could not be assessed. , Agitated earlier INVESTIGATIONS, reviewed in the clinical context: White count 14.5 hemoglobin 13.5 potassium 3.5 creatinine 0.83 Total bilirubin 1.5 AST 1944, ALT 270, creatinine kinase 73735 Previous testing White count 16 hemoglobin 7.1 potassium 3.5 creatinine 0.83 total bilirubin 1.8 AST 1778, ALT 216 Creatinine kinase 58246 Abdominal ultrasound-shows multiple gallstones suggestive and some mild fatty infiltration of the liver Assessment: -Acute severe rhabdomyolysis in a patient who drinks Coca-Cola products 24 hours a day does not drink water. Patient also takes lipid-lowering medication that he is taking for a few years., Slow to respond -Acute delirium -Acute psychosis -Obesity BMI 30.5 -Acute hepatitis, could be ischemic.- -Bipolar disorder uncontrolled with uncontrolled anxiety Plan: Patient received Nilson earlier. Discussed at length with the nurse and the patient's mother. Questions were answered. Psychiatry saw the patient later today. All others antipsychotics were discontinued. Patient's been put on Risperdal. That includes IV fluids. Follow electrolytes and CPK. Patient has a sitter.
[2019-04-27] MEDS: SODIUM CHLORIDE 0.9% 1,000 ML IV SCH ×4 (03:04→22:50)
--- NOTE | 2019-04-27 06:11 | CONS ---
CONSULTATION DATE OF SERVICE: 04/26/2019 REASON FOR CONSULTATION: Elevated LFTs and rhabdomyolysis. HISTORY OF PRESENT ILLNESS: The patient is a 54-year-old pleasant white male with history of hypertension, hyperlipidemia, bipolar disorder was admitted to the hospital because he was not feeling well for the last few days duration and was having some dark colored urine. He went to see his PCP and was noted to have significantly elevated CPK consistent with rhabdomyolysis and hence he was admitted to the hospital for further evaluation. While in the hospital, he was noted to have elevated LFTs and hence we are consulted in regards to this issue. The patient denies any prior history of chronic hepatitis, jaundice, or history of chronic liver disease. He denies any abdominal pain. Reports no medications that he started recently. He reports no high-risk behavior. No history of intravenous drug use. PAST MEDICAL HISTORY: Significant for bipolar disorder, hypertension, hyperlipidemia. PAST SURGICAL HISTORY: None. SOCIAL HISTORY: He denies any smoking or alcohol use. He lives with his mother. FAMILY HISTORY: Unremarkable. MEDICATIONS: Medications at home include Wellbutrin, Topamax, Zoloft, Toprol, Ativan, Zetia, and Lipitor. REVIEW OF SYSTEMS: CARDIOPULMONARY: No chest pain or shortness of breath. GENITOURINARY: No dysuria or hematuria. MUSCULOSKELETAL: Unremarkable other than some lower extremity cramping. ENT/VISION: Unremarkable. CONSTITUTIONAL: No recent weight loss. No fever, chills, night sweats. NEUROLOGY: Unremarkable. PSYCHIATRY: History of delusions, history of anxiety and depression. ENDOCRINE: Unremarkable. PHYSICAL EXAMINATION: On physical examination, he appears comfortable, in no apparent distress. VITAL SIGNS: Are stable. Blood pressure is 127/75, pulse rate 73, temperature 97.9. HEENT EXAMINATION: Unremarkable. Conjunctivae pink. Sclerae anicteric. Oral cavity no lesions. NECK: No JVD or lymph node enlargement. CHEST: Was clear to auscultation. HEART: Regular rate and rhythm. ABDOMEN: Soft. Bowel sounds are positive. No organomegaly. EXTREMITIES: No pedal edema. SKIN: No rashes. NEURO: He is alert and oriented x3. No focal deficits. LABS: Labs from yesterday WBC 16, hemoglobin 17.1, platelets normal. Basic metabolic panel is within normal limits. PT, INR is within normal limits. BUN and creatinine at 12 and 0.83 respectively. T-bilirubin is 1.8, AST of 1778, ALT 216, creatine kinase 58,463. Today T-bilirubin is down to 1.5, AST is 1944, ALT is 270, alkaline phosphatase is 87. CPK is 41,268. Triglycerides are 200. Urinalysis shows large amount of blood. Hepatitis serology for A, B and C are negative. Ultrasound of the abdomen showed gallstones and gallbladder polyps but no changes of acute cholecystitis. Mild fatty liver noted. IMPRESSION: 1. Acute rhabdomyolysis with significant elevation of CPK. The patient was evaluated by Nephrology. It is thought that the rhabdomyolysis probably related to Lipitor and Zetia, which has been discontinued. 2. Elevated LFTs and mild jaundice. Part of the elevated LFTs, especially the SGOT is significantly increased from the enzyme that is muscle origin but part of elevation of serum transaminases can be explained on the basis of decreased perfusion to the liver/mild ischemic hepatitis from volume depletion. 3. History of bipolar disorder. 4. History of hypertension. RECOMMENDATIONS: 1. Continue with aggressive IV hydration as per Nephrology. 2. We will monitor the serum transaminases closely. As mentioned above, hepatitis serologies for A, B and C are negative. 3. Often with improving CPK level, serum transaminases also gradually improve. 4. No need to investigate for any chronic liver disease. 5. We will follow with you closely. Thank you for this consultation. MMRITESHL / GYPSYN: [id number] /
[2019-04-27 07:52] LABS: ALT 198 U/L (4-49); African American GFR (CKD) >90 (>60 ml/min/1.73 sqM); Albumin 3.5 g/dL (3.5-5.0); Alkaline Phosphatase 70 U/L (38-126); Anion Gap 4 mmol/L; Blood Urea Nitrogen 11 mg/dL (9-20); Calcium 8.5 mg/dL (8.4-10.2); Carbon Dioxide 35 mmol/L (22-30); Chloride 103 mmol/L (98-107); Glucose 106 mg/dL (74-99); Non-African American GFR(CKD) >90 (>60 ml/min/1.73 sqM); Potassium 3.3 mmol/L (3.5-5.1); Sodium 142 mmol/L (137-145); Total Bilirubin 0.9 mg/dL (0.2-1.3); Total Protein 5.6 g/dL (6.3-8.2)
[2019-04-27 08:13] LABS: AST 998 U/L (17-59)
[2019-04-27] MEDS: METOPROLOL SUCCINATE (ER) 50 MG TAB.ER.24H PO SCH (08:48)
[2019-04-27] MEDS: TOPIRAMATE 25 MG TAB PO SCH (08:48)
[2019-04-27] MEDS: risperiDONE 1 MG TAB PO SCH (08:48)
[2019-04-27] MEDS ORDERED: POTASSIUM CHLORIDE ER 20 MEQ TAB.ER PO STA (09:22)
--- NOTE | 2019-04-27 09:42 | P.PN ---
Subjective Patient is seen in follow-up for rhabdomyolysis. CK levels are trending down. Currently resting in bed. Denies any pain. Urine output has been good. No hematuria. Vital signs are stable. General: The patient appeared well nourished and normally developed. HEENT: Head exam is unremarkable. Neck is without jugular venous distension. LUNGS: Lungs are clear to auscultation and percussion. Breath sounds decreased. HEART: Rate and Rhythm are regular. First and second heart sounds normal. No murmurs, rubs or gallops. ABDOMEN: Abdominal exam reveals normal bowel sounds. Non-tender and non- distended. No evidence of peritonitis. EXTREMITITES: No clubbing, cyanosis, or edema. Objective - Vital Signs Vital signs: Vital Signs Temp 98.3 F 04/27/19 07:00 Pulse 72 04/27/19 07:00 Resp 17 04/27/19 07:00 BP 111/64 04/27/19 07:00 Pulse Ox 95 04/27/19 07:00 Intake & Output 04/26/19 04/27/19 04/27/19 18:59 06:59 18:59 Intake Total 3792 Balance 3792 Weight 101.8 kg Intake: Intake, IV Titration 1000 Amount Dextrose 5% in Water 1, 1000 000 ml @ 200 mls/hr IV . Q5H45M DORIS with Sodium Bicarb (1 Meq/ml) 150 ml Rx#:[id number] Oral 2792 Other: Voiding Method Toilet Urinal # Voids 1 1 # Bowel Movements 0 - Labs CBC & Chem 7: 04/26/19 08:15 04/27/19 06:42 Labs: Abnormal Lab Results - Last 24 Hours (Table) 04/26/19 04/27/19 Range/Units 08:15 06:42 Potassium 3.3 L (3.5-5.1) mmol/L Carbon Dioxide 35 H (22-30) mmol/L Glucose 106 H (74-99) mg/dL AST 1944 H 998 H (17-59) U/L ALT 198 H (4-49) U/L Creatine Kinase 36143 H* (55-170) U/L Total Protein 5.6 L (6.3-8.2) g/dL Assessment and Plan Plan: Assessment: 1. Rhabdomyolysis secondary to Lipitor and Zetia. Additionally the patient was taking several other supplements including arginine which can also be a contributor factor. CK levels trending down. No record of any trauma or injuries. UA reveals large blood without any RBCs which fits with myoglobinuria seen in rhabdomyolysis. 2. Bipolar disorder. 3. Benign hypertension. Controlled. 4. Transaminitis. Fatty infiltration of the liver noted on ultrasound. Hepatitis panel negative. GI following. Plan: Patient refusing IV fluids. He has pulled out several IV lines. Follow-up morning CK level and repeat another one in the morning. Lipitor and Zetia held. Replace potassium. 40 mEq today.
[2019-04-27 09:51] LABS: Creatine Kinase 9775 U/L (55-170)
--- NOTE | 2019-04-27 13:34 | P.PN ---
Subjective Progress Note Date: 04/27/19 CHIEF COMPLAINT: gallstones HISTORY OF PRESENT ILLNESS: Patient examined at the bedside. He denies abdominal pain. Denies nausea or vomiting. Bilirubin 0.9. AST 998. ALT 198. Creatinine kinase 9775. PHYSICAL EXAM: VITAL SIGNS: Reviewed. GENERAL: Well-developed in no acute distress. HEENT: No sclera icterus. Extraocular movements grossly intact. Moist buccal mucosa. Head is atraumatic, normocephalic. ABDOMEN: Soft. Nondistended. Nontender. NEUROLOGIC: Alert and oriented. ASSESSMENT: 1. Cholelithiasis 2. Leukocytosis 3. Hyperbilirubinemia 4. Transaminitis 5. Rhabdomyolysis PLAN: No immediate surgical intervention as patient is asymptomatic in regards to gallstones. Possible cholecystectomy in the future when patient is medically stable. Continue to monitor LFTs. GI on consult. We will sign off. Please reconsult if needed Patient may follow up with Dr. Ceron outpatient once discharged Nurse practitioner note has been reviewed by physician. Signing provider agrees with the documented findings, assessment, and plan of care. Objective - Vital Signs Vital signs: Vital Signs Temp 98.3 F 04/27/19 07:00 Pulse 72 04/27/19 08:00 Resp 17 04/27/19 08:00 BP 111/64 04/27/19 07:00 Pulse Ox 95 04/27/19 07:00 Intake & Output 04/26/19 04/27/19 04/27/19 18:59 06:59 18:59 Intake Total 3792 Balance 3792 Weight 101.8 kg Intake: Intake, IV Titration 1000 Amount Dextrose 5% in Water 1, 1000 000 ml @ 200 mls/hr IV . Q5H45M DORIS with Sodium Bicarb (1 Meq/ml) 150 ml Rx#:[id number] Oral 2792 Other: Voiding Method Toilet Toilet Urinal Urinal # Voids 1 1 # Bowel Movements 0 - Labs CBC & Chem 7: 04/26/19 08:15 04/27/19 06:42 Labs: Abnormal Lab Results - Last 24 Hours (Table) 04/27/19 Range/Units 06:42 Potassium 3.3 L (3.5-5.1) mmol/L Carbon Dioxide 35 H (22-30) mmol/L Glucose 106 H (74-99) mg/dL AST 998 H (17-59) U/L ALT 198 H (4-49) U/L Creatine Kinase 9775 H* (55-170) U/L Total Protein 5.6 L (6.3-8.2) g/dL
--- NOTE | 2019-04-27 14:09 | P.PN ---
Progress Note - Text Progress Note Date: 04/27/19 Interval History: Patient was seen at the bedside with his mother and mother immediately approac hed the repairer typewriter and wanted to speak to him outside of the room. Mother claims that patient has been doing better on the Risperdal and is more "lucid" however has been sleeping and resting throughout the day and has been eating his meals. Patient was awake and was agreeable to speak to repairer typewriter and was more appropriate. Patient continues to ramble and was illogical and somewhat delusional, yecenia higgins in thought process however was somewhat directable. He explained about having a head injury when he was a child and has been dealing with headaches his whole life. He also spoke about the tinnitus in his ears and how he is going to be seen by the ENT specialist. Patient continues to endorse being "sensitive to metal". He claims that his mood has been gradually improving and denies any problems with the medications at this time. He states that he is "craving cola". Patient was agreeable to have his risperidone increased at nighttime as he had a difficult time sleeping last night. At this time patient denies any suicidal or homical ideations, intent or plan. Patient denies any auditory, visual hallucinations. Mental Status Exam: General Appearance: Patient appears to be stated age is overweight, alert, attempts to cooperate. Poor hygiene and grooming. Behavior: Patient is calmly lying in bed without any agitated behavior. Speech: Patient's speech is fluent and nonpressured. Mildly less preoccupied with delusions. Mood/Affect: Patient reports their mood is "alright", affect is congruent Suicidality/Homicidality: Patient denies having any suicidal or homicidal ideation intent or plan. Perceptions: Patient denies any auditory or visual hallucinations. Though content/process: Patient continues to be delusional, less preoccupied. Tangential/circumstantial in thought process. Rambles frequently. Memory and concentration: AOX3, grossly intact for the purposes of this session. Judgment and insight: Poor/impulsive, mildly improving. Assessment Psychosis unspecified, rule out secondary to medications History of schizoaffective disorder PLAN: -Would recommend the following medication changes/additions: Increased Risperdal 1 mg daily + 2mg nightly for psychosis/mood stabilization. When necessary Haldol when needed for severe agitation. Ativan when necessary for anxiety. Continue with melatonin daily at bedtime for sleep. -ENT consult for tinnitus and hearing difficulties. We'll consider MRI of brain if condition does not improve. Computed tomography scan of head completed on admission was negative. -Continue holding antidepressants at this time. -Continue 1:1 sitter for safety -Cannot leave AMA at this time. Patient will need a petition and certification if attempting to leave AMA. -Will continue to follow along as patient is being medically treated for rhabdomyolysis and transaminitis, condition has been gradually improving with medical treatment. -When medically stable, we will reevaluate patient for possible transfer to psychiatric unit for further treatment.
--- NOTE | 2019-04-27 14:57 | P.PN ---
Progress Note - Text Progress Note Date: 04/27/19 Chief Complaint: Dark urine Interval history: This is a 54-year-old patient of Dr. lainez from [place]. Chronic stable medical conditions include hypertension, hyperlipidemia, bipolar disorder. Patient is at home with his mother and does some intermittent jobs. He shouldn't drinks coke all the time with or drink any water and only has 1 meal a day. Patient also not followed up as a psychiatrist for a while. Patient went to see his family doctor as without feeling well. Was having very dark colored urine like the color of Pepsi. Patient is found to have abnormal labs including very elevated CPK and sent to the ER. Patient's CPK was found to be more than 50,000. Patient started on a bicarbonate drip and IV fluids. To the ER. Patient's mother is at the bedside. Patient feels his bipolar disorder is becoming well uncontrolled with extremely anxious. Her mother things that patient may be overmedicated. Patient is also having ringing in the ears which she's had for some time. Apparently his also been having auditory hallucinations. Patient rather restless during the interview process. Patient has been taking his current lipid-lowering medications for 5-10 years Admitted with-severe rhabdomyolysis, psychosis, delirium. Patient was started on IV fluids bicarbonate drip. Today-doing much better this morning. Laying in bed. Able to converse normally. Less anxious. Mother at the bedside.. Minimal headache if any. Some tinnitus and decreased hearing the left ear. Some of which is chronic. Review of systems: Was done for constitutional, cardiovascular, GI, pulmonary. relevant finding as above Active Medications Enoxaparin Sodium (Lovenox) 40 mg SQ DAILY@2100 [facility] Last Admin: 04/26/19 20:25 Dose: 40 mg Documented by: Haloperidol Lactate (Haldol) 4 mg IM Q6HR PRN PRN Reason: Agitation or Acute Psychosis Sodium Chloride (Saline 0.9%) 1,000 mls @ 150 mls/hr IV .Q6H40M [facility] Last Admin: 04/27/19 03:04 Dose: Not Given Documented by: Lorazepam (Ativan) 1 mg PO BID PRN PRN Reason: Anxiety Last Admin: 04/26/19 20:25 Dose: 1 mg Documented by: Melatonin (Melatonin) 5 mg PO HS [facility] Last Admin: 04/26/19 20:25 Dose: 5 mg Documented by: Metoprolol Succinate (Toprol Xl) 50 mg PO DAILY [facility] Last Admin: 04/27/19 08:48 Dose: 50 mg Documented by: Naloxone HCl (Narcan) 0.2 mg IV Q2M PRN PRN Reason: Opioid Reversal Risperidone (Risperdal) 1 mg PO DAILY [facility] Risperidone (Risperdal) 2 mg PO HS DORIS Topiramate (Topamax) 25 mg PO DAILY [facility] Last Admin: 04/27/19 08:48 Dose: 25 mg Documented by: Physical examination: VITAL SIGNS: 98.3, 72, 17, 1 , 95% room air GENERAL: Laying in bed, awake EYES: Pupils equal. Conjunctiva normal. HEENT: External appearance of nose and ears normal, oral cavity grossly normal decreased hearing. NECK: JVD not raised; masses not palpable. HEART: First and second heart sounds are normal; no edema. LUNGS: Respiratory rate normal; clear to auscultation. ABDOMEN: Soft, nontender, liver spleen not palpable, no masses palpable. PSYCH: AAO 3, slightly anxious INVESTIGATIONS, reviewed in the clinical context: Potassium 3.3 creatinine 0.8 bilirubin 0.9 AST 998 ALT-198 creatine kinase 9775 Previous testing White count 16 hemoglobin 7.1 potassium 3.5 creatinine 0.83 total bilirubin 1.8 AST 1778, ALT 216 Creatinine kinase 30528 Abdominal ultrasound-shows multiple gallstones suggestive and some mild fatty infiltration of the liver Assessment: -Acute severe rhabdomyolysis in a patient who drinks Coca-Cola products 24 hours a day does not drink water. Patient also takes lipid-lowering medication that he is taking for a few years., Improving -Acute delirium, resolved -Acute psychosis, resolved -Obesity BMI 30.5 -Acute hepatitis, could be ischemic, improving.- -Bipolar disorder uncontrolled with uncontrolled anxiety Plan: Discussed with the patient and the mother length. Also discussed at length about eating healthy. We'll have the dietitian come back and talk to the patient and mother. Also discussed with Dr. Austin is from psychiatry. ENT consultation is being done. Patient's headaches are better. We'll get her MRI of the brain. Neurology services not available in the hospital. Possible follow-up outpatient if required. Hopefully patient will be transferred to the psychiatry unit on Wednesday. Repeat labs in the morning. Total time spent today about 45 minutes with over 30 minutes of discussion
[2019-04-27] MEDS ORDERED: ACETAMINOPHEN TAB 325 MG TAB PO PRN (19:21)
[2019-04-27] MEDS: IBUPROFEN 400 MG TAB PO PRN (20:48)
[2019-04-27] MEDS: ENOXAPARIN 40 MG/0.4 ML SYRINGE SQ SCH (22:04)
[2019-04-27] MEDS: MELATONIN 5 MG TABLET PO SCH (22:04)
[2019-04-27] MEDS: risperiDONE 2 MG TAB PO SCH (23:05)
--- NOTE | 2019-04-27 23:08 | PN ---
PROGRESS NOTE DATE OF SERVICE: 04/27/2019 The patient is a 54-year-old pleasant white male admitted to the hospital with acute rhabdomyolysis and elevated LFTs. He also history of bipolar disorder and was seen by psychiatric yesterday. He complains of abdominal pain. He reports no nausea, vomiting. No rectal bleeding or melena. The patient has been refusing IV and he pulled it out 3 times since yesterday. PHYSICAL EXAMINATION: He appears comfortable. No apparent distress. VITAL SIGNS: Stable. Blood pressure is 133/84, pulse , temperature 98.2. HEENT examination unremarkable. Conjunctivae pink. Sclerae anicteric. Oral cavity no lesions. NECK: No JVD or lymph node enlargement. CHEST: Clear to auscultation. HEART: Regular rate and rhythm. ABDOMEN: Soft, nontender, nondistended. Bowel sounds are positive. No organomegaly. EXTREMITIES: No pedal edema. SKIN no rashes. NEUROLOGIC: Alert and oriented x3. No focal deficits. LABS: WBC 14.5, hemoglobin 15.5, platelets are within normal limits. CPK is down to 9775. The AST is down to 998, ALT is down to 198, T-bilirubin is normalized at 0.9. Hepatitis serologies for A, B and C are negative. IMPRESSION: 1. Acute rhabdomyolysis with significantly improved CPK. Patient doing much better. 2. Elevated LFTs. Part of the AST elevation is from muscle origin and some of the elevated LFTs could be from hypoperfusion from severe rhabdomyolysis. LFTs are gradually improving. Hepatitis serologies for A, B and C are negative. 3. History of bipolar disorder. 4. Anxiety and depression. RECOMMENDATIONS: 1. Continue with aggressive hydration. 2. Repeat LFTs in the morning. 3. Monitor CBC on a daily basis. 4. We will follow with you closely. Thank you for this consultation. MMODL / IJN: [id number] /
[2019-04-28] MEDS: SODIUM CHLORIDE 0.9% 1,000 ML IV SCH ×4 (04:34→21:15)
[2019-04-28 08:24] LABS: ALT 147 U/L (4-49); AST 389 U/L (17-59); African American GFR (CKD) >90 (>60 ml/min/1.73 sqM); Albumin 3.7 g/dL (3.5-5.0); Alkaline Phosphatase 74 U/L (38-126); Anion Gap 10 mmol/L; Blood Urea Nitrogen 18 mg/dL (9-20); Carbon Dioxide 24 mmol/L (22-30); Chloride 108 mmol/L (98-107); Glucose 121 mg/dL (74-99); Non-African American GFR(CKD) >90 (>60 ml/min/1.73 sqM); Potassium 3.3 mmol/L (3.5-5.1); Sodium 142 mmol/L (137-145); Total Bilirubin 1.2 mg/dL (0.2-1.3); Total Protein 6.1 g/dL (6.3-8.2)
[2019-04-28] MEDS: METOPROLOL SUCCINATE (ER) 50 MG TAB.ER.24H PO SCH (08:34)
[2019-04-28] MEDS: risperiDONE 1 MG TAB PO SCH (08:35)
[2019-04-28] MEDS: TOPIRAMATE 25 MG TAB PO SCH (08:35)
[2019-04-28 08:36] LABS: Creatine Kinase 1578 U/L (55-170)
--- NOTE | 2019-04-28 10:01 | MR ---
EXAMINATION TYPE: MR brain wo/w con DATE OF EXAM: 04/28/2019 COMPARISON: CT brain 04/25/2019 HISTORY: Headache and ringing in the ears CONTRAST: Performed utilizing 10 mL intravenous Gadavist gadolinium contrast. TECHNIQUE: Multiplanar, multiecho imaging on a 3.0 Chloe magnet is performed through the brain. Stud y is performed within 24 hours of arrival to the hospital. The craniovertebral junction is normal. The pituitary is normal. Diffusion-weighted imaging is performed. No abnormal hyperintensity is present to suggest an acute i ntracranial infarct or acute ischemic change. There is a punctate subcortical white matter change within the left frontal lobe. Series 501 image 20 . This is nonspecific and could be related to microvascular ischemic change, migraine headaches, vasc ulitis among other etiologies. This is not out of proportion to the patient age. Ventricles and sulci are appropriate for the patient age. The internal auditory canals as visualized. Cerebellar pontine angles appear normal. Vertebral basilar system is visualized appears unremarkable . No abnormal enhancement is evident. IMPRESSIONS: 1. Normal MRI brain.
[2019-04-28] MEDS ORDERED: POTASSIUM CHLORIDE ER 20 MEQ TAB.ER PO STA (10:47)
--- NOTE | 2019-04-28 10:48 | P.PN ---
Subjective Patient is seen in follow-up for rhabdomyolysis. CK levels are trending down. Currently resting in bed. Denies any pain. Urine output has been good. No hematuria. Patient did develop a fever last night. Vital signs are stable. General: The patient appeared well nourished and normally developed. HEENT: Head exam is unremarkable. Neck is without jugular venous distension. LUNGS: Lungs are clear to auscultation and percussion. Breath sounds decreased. HEART: Rate and Rhythm are regular. First and second heart sounds normal. No murmurs, rubs or gallops. ABDOMEN: Abdominal exam reveals normal bowel sounds. Non-tender and non- distended. No evidence of peritonitis. EXTREMITITES: No clubbing, cyanosis, or edema. Objective - Vital Signs Vital signs: Vital Signs Temp 98.9 F 04/28/19 08:40 Pulse 92 04/28/19 08:40 Resp 16 04/28/19 08:40 BP 116/67 04/28/19 08:40 Pulse Ox 92 L 04/28/19 08:40 Intake & Output 04/27/19 04/28/19 04/28/19 18:59 06:59 18:59 Intake Total 540 1320 Output Total 200 Balance 540 1120 Intake: Oral 540 1320 Output: Urine 200 Other: Voiding Method Toilet Toilet Urinal Urinal # Voids 1 - Labs CBC & Chem 7: 04/26/19 08:15 04/28/19 07:38 Labs: Abnormal Lab Results - Last 24 Hours (Table) 04/28/19 Range/Units 07:38 Potassium 3.3 L (3.5-5.1) mmol/L Chloride 108 H (98-107) mmol/L Glucose 121 H (74-99) mg/dL Calcium 8.0 L (8.4-10.2) mg/dL AST 389 H (17-59) U/L ALT 147 H (4-49) U/L Creatine Kinase 1578 H* (55-170) U/L Total Protein 6.1 L (6.3-8.2) g/dL Assessment and Plan Plan: Assessment: 1. Rhabdomyolysis secondary to Lipitor and Zetia. Additionally the patient was taking several other supplements including arginine which can also be a contributor factor. CK levels trending down. No record of any trauma or injuries. UA reveals large blood without any RBCs which fits with myoglobinuria seen in rhabdomyolysis. 2. Bipolar disorder. 3. Benign hypertension. Controlled. 4. Transaminitis. Fatty infiltration of the liver noted on ultrasound. Hepatitis panel negative. GI following. 5. Hypokalemia from poor oral intake and saline diuresis. Plan: Decrease rate of normal saline to 75 mL an hour. Lipitor and Zetia held. Replace potassium. 40 mEq today. Repeat electrolytes in the morning.
[2019-04-28] MEDS: IBUPROFEN 400 MG TAB PO PRN (19:20)
[2019-04-28] MEDS: MELATONIN 5 MG TABLET PO SCH (19:21)
[2019-04-28] MEDS: ENOXAPARIN 40 MG/0.4 ML SYRINGE SQ SCH (19:25)
--- NOTE | 2019-04-28 19:45 | PN ---
PROGRESS NOTE DATE OF DICTATION: April 28, 2019 Patient is a 54-year-old pleasant white male admitted to hospital with acute rhabdomyolysis and was also noted to have elevated serum transaminases which are gradually improving. He denies any complaints today. He had some diarrhea this morning. No nausea, vomiting. Has some abdominal pain. PHYSICAL EXAMINATION: He appears comfortable. No apparent distress. VITAL SIGNS: Stable. Blood pressure 154/82, pulse of 97, temperature 98.8. HEENT examination unremarkable. Conjunctivae pink. Sclerae anicteric. Oral cavity no lesions. Neck: No JVD or lymph node enlargement. CHEST: Clear to auscultation. HEART: Regular rate and rhythm. ABDOMEN: Soft, it was non-distended, nontender. Bowel sounds are positive. No organomegaly. EXTREMITIES: No pedal edema. SKIN: No rashes. NEURO: He is alert and oriented x3. No focal deficits. LABS: From today AST is down to 389, ALT is down to 147. CPK is down to 1578, T-bilirubin and alkaline phosphatase are within normal limits. WBC 14.5, hemoglobin 15.5, platelets 193. IMPRESSION: 1. Acute rhabdomyolysis. Dr. Castellon following the patient closely. Appears to be related to Zetia and Lipitor combination, which has been on hold. He is on aggressive IV hydration. CPK is gradually improving. BUN and creatinine normal. 2. Elevated liver function tests secondary to acute rhabdomyolysis. LFTs are gradually improving. 3. History of bipolar disorder. 4. Psychiatric following the patient closely. RECOMMENDATIONS: 1. Continue with aggressive hydration. 2. Repeat LFTs in the morning. 3. We will follow with you closely. Thank you for this consultation. MMODL / IJN: [id number] /
[2019-04-28] MEDS: risperiDONE 2 MG TAB PO SCH (20:43)
--- NOTE | 2019-04-28 22:59 | P.PN ---
Progress Note - Text Progress Note Date: 04/28/19 Chief Complaint: Dark urine Interval history: This is a 54-year-old patient of Dr. lainez from [place]. Chronic stable medical conditions include hypertension, hyperlipidemia, bipolar disorder. Patient is at home with his mother and does some intermittent jobs. He shouldn't drinks coke all the time with or drink any water and only has 1 meal a day. Patient also not followed up as a psychiatrist for a while. Patient went to see his family doctor as without feeling well. Was having very dark colored urine like the color of Pepsi. Patient is found to have abnormal labs including very elevated CPK and sent to the ER. Patient's CPK was found to be more than 50,000. Patient started on a bicarbonate drip and IV fluids. To the ER. Patient's mother is at the bedside. Patient feels his bipolar disorder is becoming well uncontrolled with extremely anxious. Her mother things that patient may be overmedicated. Patient is also having ringing in the ears which she's had for some time. Apparently his also been having auditory hallucinations. Patient rather restless during the interview process. Patient has been taking his current lipid-lowering medications for 5-10 years Admitted with-severe rhabdomyolysis, psychosis, delirium. Patient was started on IV fluids bicarbonate drip. Today-patient had a fever yesterday evening. Nasal congestion. [place] to be viral upper respiratory tract infection. [place] a bit tired today. Otherwise been sleeping better. No more psychotic episodes. Was at the bedside. Review of systems: Was done for constitutional, cardiovascular, GI, pulmonary. relevant finding as above Active Medications Enoxaparin Sodium (Lovenox) 40 mg SQ DAILY@2100 [facility] Last Admin: 04/28/19 19:25 Dose: 40 mg Documented by: Haloperidol Lactate (Haldol) 4 mg IM Q6HR PRN PRN Reason: Agitation or Acute Psychosis Sodium Chloride (Saline 0.9%) 1,000 mls @ 75 mls/hr IV .[id number] [facility] Last Admin: 04/28/19 21:15 Dose: 75 mls/hr Documented by: Ibuprofen (Motrin) 400 mg PO Q6HR PRN PRN Reason: Fever Last Admin: 04/28/19 19:20 Dose: 400 mg Documented by: Lorazepam (Ativan) 1 mg PO BID PRN PRN Reason: Anxiety Last Admin: 04/26/19 20:25 Dose: 1 mg Documented by: Melatonin (Melatonin) 5 mg PO HS [facility] Last Admin: 04/28/19 19:21 Dose: 5 mg Documented by: Metoprolol Succinate (Toprol Xl) 50 mg PO DAILY [facility] Last Admin: 04/28/19 08:34 Dose: 50 mg Documented by: Naloxone HCl (Narcan) 0.2 mg IV Q2M PRN PRN Reason: Opioid Reversal Risperidone (Risperdal) 1 mg PO DAILY [facility] Last Admin: 04/28/19 08:35 Dose: 1 mg Documented by: Risperidone (Risperdal) 2 mg PO HS [facility] Last Admin: 04/28/19 20:43 Dose: 2 mg Documented by: Topiramate (Topamax) 25 mg PO DAILY [facility] Last Admin: 04/28/19 08:35 Dose: 25 mg Documented by: Physical examination: VITAL SIGNS: 98.9, 92, 16, 11 6/67, 92% room air GENERAL: Laying in bed, awake EYES: Pupils equal. Conjunctiva normal. HEENT: External appearance of nose and ears normal, oral cavity grossly normal decreased hearing. Nasal congestion NECK: JVD not raised; masses not palpable. HEART: First and second heart sounds are normal; no edema. LUNGS: Respiratory rate normal; clear to auscultation. ABDOMEN: Soft, nontender, liver spleen not palpable, no masses palpable. PSYCH: AAO 3, slightly anxious INVESTIGATIONS, reviewed in the clinical context: Potassium 3.3 creatinine 0.8 AST-389 ALT-147 creatinine kinase-1578 MRI of the brain-negative Previous testing White count 16 hemoglobin 7.1 potassium 3.5 creatinine 0.83 total bilirubin 1.8 AST 1778, ALT 216 Creatinine kinase 57165 Abdominal ultrasound-shows multiple gallstones suggestive and some mild fatty infiltration of the liver Assessment: -Acute severe rhabdomyolysis in a patient who drinks Coca-Cola products 24 hours a day does not drink water. Patient also takes lipid-lowering medication that he is taking for a few years., Improving -Acute upper respiratory tract infection likely viral. Check influenza A and B. Patient's fevers only complaint on this morning. -Acute delirium, resolved -Acute psychosis, resolved -Obesity BMI 30.5 -Acute hepatitis, could be ischemic, improving.- -Bipolar disorder uncontrolled with uncontrolled anxiety Plan: Bump up to IV fluids to 1 50 mL an hour as patient not eating much today. Because of the viral upper respiratory tract infection. Repeat labs in the morning. Care was discussed in detail with the mother of the patient. Encouraged to ambulate. Second of nasal saw for influenza A and B.
[2019-04-28] MEDS: LACTATED RINGERS 1,000 ML IV SCH (23:52)
[2019-04-29] MEDS: LACTATED RINGERS 1,000 ML IV SCH (03:44)
[2019-04-29 07:13] LABS: ALT 115 U/L (4-49); AST 145 U/L (17-59); African American GFR (CKD) >90 (>60 ml/min/1.73 sqM); Albumin 2.8 g/dL (3.5-5.0); Alkaline Phosphatase 58 U/L (38-126); Anion Gap 7 mmol/L; Blood Urea Nitrogen 13 mg/dL (9-20); Calcium 7.4 mg/dL (8.4-10.2); Carbon Dioxide 23 mmol/L (22-30); Chloride 110 mmol/L (98-107); Creatine Kinase 506 U/L (55-170); Glucose 88 mg/dL (74-99); Magnesium 2.2 mg/dL (1.6-2.3); Non-African American GFR(CKD) >90 (>60 ml/min/1.73 sqM); Potassium 3.1 mmol/L (3.5-5.1); Sodium 140 mmol/L (137-145); Total Bilirubin 0.9 mg/dL (0.2-1.3)
[2019-04-29] MEDS: METOPROLOL SUCCINATE (ER) 50 MG TAB.ER.24H PO SCH (09:41)
[2019-04-29] MEDS: TOPIRAMATE 25 MG TAB PO SCH (09:41)
[2019-04-29] MEDS: risperiDONE 1 MG TAB PO SCH (09:41)
--- NOTE | 2019-04-29 09:50 | P.PN ---
Subjective Patient is seen in follow-up for rhabdomyolysis. CK levels are trending down. Currently resting in bed. Denies any pain. Urine output has been good. No hematuria. Vital signs are stable. General: The patient appeared well nourished and normally developed. HEENT: Head exam is unremarkable. Neck is without jugular venous distension. LUNGS: Lungs are clear to auscultation and percussion. Breath sounds decreased. HEART: Rate and Rhythm are regular. First and second heart sounds normal. No murmurs, rubs or gallops. ABDOMEN: Abdominal exam reveals normal bowel sounds. Non-tender and non- distended. No evidence of peritonitis. EXTREMITITES: No clubbing, cyanosis, or edema. Objective - Vital Signs Vital signs: Vital Signs Temp 98.5 F 04/29/19 07:48 Pulse 72 04/29/19 07:48 Resp 20 04/29/19 07:48 BP 133/87 04/29/19 07:48 Pulse Ox 96 04/29/19 07:48 Intake & Output 04/28/19 04/29/19 04/29/19 18:59 06:59 18:59 Intake Total 1080 200 Balance 1080 200 Intake: Oral 1080 200 Other: Voiding Method Toilet # Voids 3 1 # Bowel Movements 1 - Labs CBC & Chem 7: 04/26/19 08:15 04/29/19 06:16 Labs: Abnormal Lab Results - Last 24 Hours (Table) 04/29/19 Range/Units 06:16 Potassium 3.1 L (3.5-5.1) mmol/L Chloride 110 H (98-107) mmol/L Calcium 7.4 L (8.4-10.2) mg/dL AST 145 H (17-59) U/L ALT 115 H (4-49) U/L Creatine Kinase 506 H (55-170) U/L Total Protein 5.0 L (6.3-8.2) g/dL Albumin 2.8 L (3.5-5.0) g/dL Assessment and Plan Plan: Assessment: 1. Rhabdomyolysis secondary to Lipitor and Zetia. Additionally the patient was taking several other supplements including arginine which can also be a contributor factor. CK levels trending down. No record of any trauma or injuries. UA reveals large blood without any RBCs which fits with myoglobinuria seen in rhabdomyolysis. 2. Bipolar disorder. 3. Benign hypertension. Controlled. 4. Transaminitis. Fatty infiltration of the liver noted on ultrasound. Hepatitis panel negative. GI following. 5. Hypokalemia from poor oral intake and saline diuresis. Plan: Change fluids to normal saline at 75 mL an hour. No need for aggressive IV hydration as rhabdomyolysis is mostly resolved. Lipitor and Zetia held. Replace potassium. 60 mEq today. Repeat electrolytes in the morning.
[2019-04-29] MEDS: POTASSIUM CHLORIDE ER 20 MEQ TAB.ER PO SCH ×3 (10:42→14:05)
[2019-04-29] MEDS: SODIUM CHLORIDE 0.9% 1,000 ML IV SCH (10:43)
--- NOTE | 2019-04-29 11:45 | PN ---
PROGRESS NOTE DATE OF SERVICE: 04/29/2019 Patient is a 54-year-old pleasant white male admitted to the hospital with acute rhabdomyolysis and elevated LFTs. He is doing much better. He also has a history of bipolar disorder and Psychiatry is following the patient closely. He denies any symptoms, complains of poor appetite. PHYSICAL EXAMINATION: Blood pressure 133/87, pulse is 72, temperature 98.5. HEENT: Examination unremarkable. Conjunctivae pink. Sclerae anicteric. Oral cavity, no lesions. NECK: No JVD or lymph node enlargement. CHEST: Clear to auscultation. HEART: Regular rate and rhythm. ABDOMEN: Soft, it was nontender, nondistended. Bowel sounds are positive. No organomegaly. EXTREMITIES: No pedal edema. NEURO: He is alert and oriented x3. No focal deficits. LABS: Labs from today, AST 145, ALT 115, T-bili 0.9, alkaline phosphatase 58, CPK 506. IMPRESSION: 1. Acute rhabdomyolysis with significant improvement over the last four days. Continue with aggressive IV hydration. Lipitor and Zetia are on hold. Dr. Castellon following the patient closely. 2. Elevated liver function tests which are gradually improving. Part of the elevated liver function tests secondary to rhabdomyolysis. Hepatitis serologies for A, B, and C were negative. RECOMMENDATIONS: 1. Continue to monitor liver function tests closely. 2. Regular diet. 3. Increase ambulation. 4. Will follow with you closely. MMODL / IJN: [id number] /
[2019-04-29 13:38] VITALS: BMI 30.4
[2019-04-29] MEDS: IBUPROFEN 400 MG TAB PO PRN (14:14)
[2019-04-29 15:13] VITALS: RESP 16
[2019-04-29] MEDS: ENOXAPARIN 40 MG/0.4 ML SYRINGE SQ SCH (20:32)
[2019-04-29] MEDS: risperiDONE 2 MG TAB PO SCH (20:33)
[2019-04-29] MEDS: MELATONIN 5 MG TABLET PO SCH (20:33)
--- NOTE | 2019-04-30 00:34 | P.PN ---
Progress Note - Text Progress Note Date: 04/29/19 Chief Complaint: Dark urine Interval history: This is a 54-year-old patient of Dr. lainez from [place]. Chronic stable medical conditions include hypertension, hyperlipidemia, bipolar disorder. Patient is at home with his mother and does some intermittent jobs. He shouldn't drinks coke all the time with or drink any water and only has 1 meal a day. Patient also not followed up as a psychiatrist for a while. Patient went to see his family doctor as without feeling well. Was having very dark colored urine like the color of Pepsi. Patient is found to have abnormal labs including very elevated CPK and sent to the ER. Patient's CPK was found to be more than 50,000. Patient started on a bicarbonate drip and IV fluids. To the ER. Patient's mother is at the bedside. Patient feels his bipolar disorder is becoming well uncontrolled with extremely anxious. Her mother things that patient may be overmedicated. Patient is also having ringing in the ears which she's had for some time. Apparently his also been having auditory hallucinations. Patient rather restless during the interview process. Patient has been taking his current lipid-lowering medications for 5-10 years Admitted with-severe rhabdomyolysis, psychosis, delirium. Patient was started on IV fluids bicarbonate drip. Today-laying in bed. No delirium. No psychosis. Not taking to eat much. No fever. Up to the bathroom. Other the bedside.. Review of systems: Was done for constitutional, cardiovascular, GI, pulmonary. relevant finding as above Active Medications Enoxaparin Sodium (Lovenox) 40 mg SQ DAILY@2100 [facility] Last Admin: 04/29/19 20:32 Dose: 40 mg Documented by: Haloperidol Lactate (Haldol) 4 mg IM Q6HR PRN PRN Reason: Agitation or Acute Psychosis Sodium Chloride (Saline 0.9%) 1,000 mls @ 75 mls/hr IV .[id number] DORIS Last Admin: 04/29/19 10:43 Dose: 75 mls/hr Documented by: Ibuprofen (Motrin) 400 mg PO Q6HR PRN PRN Reason: Fever Last Admin: 04/29/19 14:14 Dose: 400 mg Documented by: Lorazepam (Ativan) 1 mg PO BID PRN PRN Reason: Anxiety Last Admin: 04/26/19 20:25 Dose: 1 mg Documented by: Melatonin (Melatonin) 5 mg PO HS [facility] Last Admin: 04/29/19 20:33 Dose: 5 mg Documented by: Metoprolol Succinate (Toprol Xl) 50 mg PO DAILY [facility] Last Admin: 04/29/19 09:41 Dose: 50 mg Documented by: Naloxone HCl (Narcan) 0.2 mg IV Q2M PRN PRN Reason: Opioid Reversal Risperidone (Risperdal) 1 mg PO DAILY [facility] Last Admin: 04/29/19:41 Dose: 1 mg Documented by: Risperidone (Risperdal) 2 mg PO HS [facility] Last Admin: 04/29/19 20:33 Dose: 2 mg Documented by: Topiramate (Topamax) 25 mg PO DAILY [facility] Last Admin: 04/29/19: Dose: 25 mg Documented by: Physical examination: VITAL SIGNS: 98.6, 57, 16, 101/59, 95% room air GENERAL: Laying in bed, awake EYES: Pupils equal. Conjunctiva normal. HEENT: External appearance of nose and ears normal, oral cavity grossly normal decreased hearing. Nasal congestion NECK: JVD not raised; masses not palpable. HEART: First and second heart sounds are normal; no edema. LUNGS: Respiratory rate normal; clear to auscultation. ABDOMEN: Soft, nontender, liver spleen not palpable, no masses palpable. PSYCH: AAO 3, slightly anxious INVESTIGATIONS, reviewed in the clinical context: potassium 3.1 AST-145 ALT-115 creatinine kinase-506 Previous testing White count 16 hemoglobin 7.1 potassium 3.5 creatinine 0.83 total bilirubin 1.8 AST 1778, ALT 216 Creatinine kinase 57713 Abdominal ultrasound-shows multiple gallstones suggestive and some mild fatty infiltration of the liver MRI of the brain-negative Assessment: -Acute severe rhabdomyolysis in a patient who drinks Coca-Cola products 24 hours a day does not drink water. Patient also takes lipid-lowering medication that he is taking for a few years., improved -Acute upper respiratory tract infection likely viral. Check influenza A and B. Patient's fevers only complaint on this morning. -Acute delirium, resolved -Acute psychosis, resolved -Obesity BMI 30.5 -Acute hepatitis, could be ischemic, improving.- -Bipolar disorder uncontrolled with uncontrolled anxiety Plan: patient IV fluids are being cut back. Patient stable to go down to the psych unit. We'll DC the IV fluids later today. Potassium replaced. Check labs in the morning. Discussed WITH the patient and the mother. Patient again encouraged to increase oral intake and ablate.
[2019-04-30 07:16] LABS: ALT 100 U/L (4-49); AST 79 U/L (17-59); African American GFR (CKD) >90 (>60 ml/min/1.73 sqM); Albumin 3.1 g/dL (3.5-5.0); Alkaline Phosphatase 65 U/L (38-126); Anion Gap 7 mmol/L; Blood Urea Nitrogen 13 mg/dL (9-20); Calcium 8.1 mg/dL (8.4-10.2); Carbon Dioxide 22 mmol/L (22-30); Chloride 113 mmol/L (98-107); Creatine Kinase 208 U/L (55-170); Glucose 86 mg/dL (74-99); Non-African American GFR(CKD) >90 (>60 ml/min/1.73 sqM); Potassium 3.5 mmol/L (3.5-5.1); Sodium 142 mmol/L (137-145); Total Bilirubin 0.8 mg/dL (0.2-1.3); Total Protein 5.4 g/dL (6.3-8.2)
[2019-04-30 08:50] VITALS: BP 100/64; PULSE 57; TEMP 98
[2019-04-30] MEDS ORDERED: POTASSIUM CHLORIDE ER 20 MEQ TAB.ER PO STA (10:08)
[2019-04-30] MEDS: SODIUM CHLORIDE 0.9% 1,000 ML IV SCH (10:09)
--- NOTE | 2019-04-30 10:09 | P.PN ---
Subjective Patient is seen in follow-up for rhabdomyolysis. CK levels are trending down. Currently resting in bed. Denies any pain. Urine output has been good. No hematuria. Vital signs are stable. General: The patient appeared well nourished and normally developed. HEENT: Head exam is unremarkable. Neck is without jugular venous distension. LUNGS: Lungs are clear to auscultation and percussion. Breath sounds decreased. HEART: Rate and Rhythm are regular. First and second heart sounds normal. No murmurs, rubs or gallops. ABDOMEN: Abdominal exam reveals normal bowel sounds. Non-tender and non- distended. No evidence of peritonitis. EXTREMITITES: No clubbing, cyanosis, or edema. Objective - Vital Signs Vital signs: Vital Signs Temp 98.0 F 04/30/19 07:00 Pulse 57 L 04/30/19 07:00 Resp 16 04/30/19 07:00 BP 100/64 04/30/19 07:00 Pulse Ox 96 04/30/19 07:00 Intake & Output 04/29/19 04/30/19 04/30/19 18:59 06:59 18:59 Intake Total 600 300 Balance 600 300 Weight 101.8 kg Intake: IV 600 300 Sodium Chloride 0.9% 1, 600 300 000 ml @ 75 mls/hr IV . [id number] [facility] Rx#:[id number] Other: Voiding Method Toilet Toilet # Voids 1 - Labs CBC & Chem 7: 04/26/19 08:15 04/30/19 06:42 Labs: Abnormal Lab Results - Last 24 Hours (Table) 04/30/19 Range/Units 06:42 Chloride 113 H (98-107) mmol/L Calcium 8.1 L (8.4-10.2) mg/dL AST 79 H (17-59) U/L ALT 100 H (4-49) U/L Creatine Kinase 208 H (55-170) U/L Total Protein 5.4 L (6.3-8.2) g/dL Albumin 3.1 L (3.5-5.0) g/dL Assessment and Plan Plan: Assessment: 1. Rhabdomyolysis secondary to Lipitor and Zetia. Additionally the patient was taking several other supplements including arginine which can also be a contributor factor. CK levels trending down. No record of any trauma or injuri es. UA reveals large blood without any RBCs which fits with myoglobinuria seen in rhabdomyolysis. 2. Bipolar disorder. 3. Benign hypertension. Controlled. 4. Transaminitis. Improving. Fatty infiltration of the liver noted on ultrasound. Hepatitis panel negative. GI following. 5. Hypokalemia from poor oral intake and saline diuresis. Better post replacement. Plan: Hep-Lock IV fluids. Lipitor and Zetia held. Replace potassium. 40 mEq today. Stable for discharge from nephrology standpoint.
[2019-04-30] MEDS: TOPIRAMATE 25 MG TAB PO SCH (10:16)
[2019-04-30] MEDS: IBUPROFEN 400 MG TAB PO PRN (10:17)
[2019-04-30] MEDS: risperiDONE 1 MG TAB PO SCH (10:17)
--- NOTE | 2019-04-30 10:22 | PN ---
PROGRESS NOTE DATE OF DICTATION: April 30, 2019. REQUESTING PHYSICIAN: Dr. Babb/Dr. Brad Kenny. HISTORY OF PRESENT ILLNESS: The patient is a 54-year-old pleasant white male admitted to the hospital with acute rhabdomyolysis and acute elevation of LFTs 5 days ago. He has been having aggressive IV hydration. CPK has almost normalized. LFTs have significantly improved. He feels much better today. Abdominal pain has improved. Appetite is improving. No new complaints. PHYSICAL EXAMINATION: Appears comfortable no apparent distress. VITAL SIGNS: Stable. Blood pressure 100/64, pulse rate 57, temperature 98. HEENT examination unremarkable. Conjunctivae pink. Sclerae anicteric. Oral cavity no lesions. NECK: No JVD or lymph node enlargement. CHEST: Clear to auscultation. HEART: Regular rate and rhythm. ABDOMEN: Soft. Bowel sounds are positive. No organomegaly. EXTREMITIES: No pedal edema. SKIN no rashes. NEUROLOGIC: Alert and oriented x3. No focal deficits. LAB: BUN and creatinine normal. AST 79, ALT is 100, T-bilirubin and alkaline phosphatase are normal. CPK is down to 208. IMPRESSION: 1. Acute rhabdomyolysis, improving. 2. Acute hepatitis secondary to acute hepatocellular injury from recent rhabdomyolysis, which has significantly improved. Serum transaminases show an AST of 79, ALT 100 with normal bilirubin. 3. History of anxiety and depression. RECOMMENDATIONS: 1. Monitor LFTs on a close basis. 2. Advance diet as tolerated. 3. We will follow with you closely. Thank you for this consultation. MMODL / GYPSYN: [id number] /
[2019-04-30] MEDS: METOPROLOL SUCCINATE (ER) 50 MG TAB.ER.24H PO SCH (10:27)
[2019-04-30] MEDS ORDERED: busPIRone HCl 5 MG TAB PO SCH (14:38)
--- NOTE | 2019-04-30 14:45 | P.PN ---
Progress Note - Text Progress Note Date: 04/30/19 Interval History: Patient was seen at the bedside today for psychiatric follow-up. Patient was much more directable today calm and cooperative and appropriate. Patient has been taking his medications regularly and has been noted by staff to be improving significantly. Patient's LFTs and CK has been trending down and is now medically discharged. Patient spoke about his behaviors that led him to come in to the hospital including drinking too much cola and not taking his medications. He states that he was also not sleeping well/regularly. Patient was apologetic for his behaviors and states that he is "much better". He states that he is sleeping better and denies any depression. He claims to have mild anxiety at this time. Patient denies any paranoia. At this time patient denies any suicidal or homical ideations, intent or plan. Patient denies any auditory, visual hallucinations. Mental Status Exam: General Appearance: Patient appears to be stated age is overweight, alert, attempts to cooperate. Poor hygiene and grooming. Behavior: Patient is calmly lying in bed without any agitated behavior. Speech: Patient's speech is fluent and nonpressured. Mildly less preoccupied with delusions. Mood/Affect: Patient reports their mood is "alright", affect is congruent Suicidality/Homicidality: Patient denies having any suicidal or homicidal ideation intent or plan. Perceptions: Patient denies any auditory or visual hallucinations. Though content/process: Patient continues to be delusional, less preoccupied. Tangential/circumstantial in thought process. Rambles frequently. Memory and concentration: AOX3, grossly intact for the purposes of this session. Judgment and insight: Poor/impulsive, mildly improving. Assessment Psychosis unspecified, rule out secondary to medications History of schizoaffective disorder PLAN: -At this time patient does not meet inpatient psychiatric criteria. Patient is much more psychiatrically stable and has improved insight and judgment. Patient has a outpatient psychiatrist who he will be following up with in one week. Patient is denying any auditory or visual hallucinations not endorsing any delusions and denies any suicidal or homicidal ideations intent or plan. Patient does contract for safety and also reflects back on his lifestyle habits and agrees with his need to be compliant with his medications. -Would recommend the following medication changes/additions: Changed Risperdal 3 mg nightly for psychosis/mood stabilization. Continue with melatonin daily at bedtime for sleep. Added BuSpar 15 mg twice a day for anxiety. -rhabdomyolysis and transaminitis has improved significantly. -Psychiatry will sign off at this point, please contact with any questions.
[2019-04-30] MEDS ORDERED: risperiDONE 1 MG TAB PO SCH (21:00)
--- NOTE | 2019-04-30 23:58 | P.DS ---
Providers Date of admission: 04/25/19 16:37 Expected date of discharge: 04/30/19 Attending physician: Ted Babb Consults: 04/25/19 16:37 Consult Physician Routine Consulting Provider: Sydney Ortega Consult Reason/Comments: Rhabdomyolysis Do you want consulting provider notified?: Yes 04/25/19 22:36 Consult Physician Routine Consulting Provider: Russ Moreno Consult Reason/Comments: Bipolar disorder, uncontrolled Do you want consulting provider notified?: Yes 04/25/19 22:37 Consult Physician Routine Consulting Provider: Rochelle Thorpe Consult Reason/Comments: Hepatitis Do you want consulting provider notified?: Yes 04/29/19 16:19 Consult Physician Routine Consulting Provider: Russ Moreno Consult Reason/Comments: psych consult Do you want consulting provider notified?: Yes Primary care physician: Paul Kenny [facility] Course: Chief Complaint: Dark urine Hospital course: This is a 54-year-old patient of Dr. kenny from [place]. Chronic stable medical conditions include hypertension, hyperlipidemia, bipolar disorder. Patient is at home with his mother and does some intermittent jobs. He shouldn't drinks coke all the time with or drink any water and only has 1 meal a day. Patient also not followed up as a psychiatrist for a while. Patient went to see his family doctor as without feeling well. Was having very dark colored urine like the color of Pepsi. Patient is found to have abnormal labs including very elevated CPK and sent to the ER. Patient's CPK was found to be more than 50,000. Patient started on a bicarbonate drip and IV fluids. To the ER. Patient's mother is at the bedside. Patient feels his bipolar disorder is becoming well uncontrolled with extremely anxious. Her mother things that patient may be overmedicated. Patient is also having ringing in the ears which she's had for some time. Apparently his also been having auditory hallucinations. Patient rather restless during the interview process. Patient has been taking his current lipid-lowering medications for 5-10 years Admitted with-severe rhabdomyolysis, psychosis, delirium. Patient was started on IV fluids bicarbonate drip. Patient's Zoloft, Wellbutrin, Zetia, Lipitor, were all discontinued. Patient was later started on BuSpar and Risperdal. Patient greatly improved. Creatinine kinase was over 50,000 nearly back to normal before discharge. Also patient elevated liver enzymes, much improved. Several discussions were held with the patient and the mother about lifestyle changes. Today-doing well. Laying in bed comfortable discussed discharge planning with the patient. Discussed with psychiatrist Dr. Moreno. Okay to discharge the patient home. She will follow to psychiatrist Dr. Padilla. Also with GI. Also patient seen by dietitian. Discussion and discharge planning more than 35 minutes Consultation: Dr. Moreno from psychiatry Dr. Jackie Thorpe from GI Dr. Castellon from nephrology Physical examination: VITAL SIGNS: 98, 57, 16, 100/64, 96% room air GENERAL: Comfortable EYES: Pupils equal. Conjunctiva normal. HEENT: External appearance of nose and ears normal, oral cavity grossly normal decreased hearing. Nasal congestion NECK: JVD not raised; masses not palpable. HEART: First and second heart sounds are normal; no edema. LUNGS: Respiratory rate normal; clear to auscultation. ABDOMEN: Soft, nontender, liver spleen not palpable, no masses palpable. PSYCH: AAO 3, motor felt much improved INVESTIGATIONS, reviewed in the clinical context: Potassium 3.5 AST-79 ALT-100 creatinine kinase-208 Previous testing White count 16 hemoglobin 7.1 potassium 3.5 creatinine 0.83 total bilirubin 1.8 AST 1778, ALT 216 Creatinine kinase 38239 Abdominal ultrasound-shows multiple gallstones suggestive and some mild fatty infiltration of the liver MRI of the brain-negative Assessment: -Acute severe rhabdomyolysis in a patient who drinks Coca-Cola products 24 hours a day does not drink water. Patient also takes lipid-lowering medication that he is taking for a few years., Much improved -Acute upper respiratory tract infection likely viral. Negative for influenza A and B. -Acute delirium, resolved -Acute psychosis, resolved -Obesity BMI 30.5 -Acute hepatitis, could be ischemic, improving.- -Bipolar disorder uncontrolled with uncontrolled anxiety, improved Disposition: Home with mother.. Patient Condition at Discharge: Stable Plan - Discharge Summary Discharge Rx Participant: No New Discharge Prescriptions: New Melatonin 5 mg PO HS tablet Ibuprofen [Motrin] 400 mg PO Q6HR PRN tab PRN Reason: Fever busPIRone HCL [Buspar] 15 mg PO BID 28 Days tab risperiDONE [RisperDAL] 3 mg PO HS 28 Days tab Continue Metoprolol Succinate (ER) [Toprol XL] 50 mg PO DAILY Topiramate [Topamax] 25 mg PO DAILY LORazepam [Ativan] 1 mg PO BID PRN PRN Reason: Anxiety Discontinued Sertraline [Zoloft] 200 mg PO DAILY buPROPion HCL [Wellbutrin XL] 150 mg PO DAILY Ezetimibe [Zetia] 10 mg PO DAILY Atorvastatin [Lipitor] 20 mg PO DAILY Discharge Medication List LORazepam [Ativan] 1 mg PO BID PRN 04/25/19 [History] Metoprolol Succinate (ER) [Toprol XL] 50 mg PO DAILY 04/25/19 [History] Topiramate [Topamax] 25 mg PO DAILY 04/25/19 [History] Ibuprofen [Motrin] 400 mg PO Q6HR PRN tab 04/29/19 [Rx] Melatonin 5 mg PO HS tablet 04/29/19 [Rx] busPIRone HCL [Buspar] 15 mg PO BID 28 Days tab 04/30/19 [Rx] risperiDONE [RisperDAL] 3 mg PO HS 28 Days tab 04/30/19 [Rx] Follow up Appointment(s)/Referral(s): dr slime [Other] - 1 Week Tyson Penny DO [Doctor of Osteopathic Medicine] - 1 Week (Patient to call and make appointment in office for audiogram for tinnitus. Test only done in office per Dr. Penny.) Rochelle Thorpe MD [STAFF PHYSICIAN] - 2 Weeks Paul Kenny MD [Primary Care Provider] - 1 Week Adonis Ceron MD [STAFF PHYSICIAN] - 1 Week Patient Instructions/Handouts: Rhabdomyolysis (DC) Activity/Diet/Wound Care/Special Instructions: dc home Discharge Disposition: HOME SELF-CARE
== END 2019-04-30 18:29 | disposition home or self-care (01) | DRG 557 ==
LOC: EC 12:07 → 4SSUR 16:37
PROVIDERS: ADMIT Hospitalist; ATTEND Hospitalist
DX: M62.82 Rhabdomyolysis (principal); K72.00 Acute and subacute hepatic failure without coma; E87.2 Acidosis; N17.9 Acute kidney failure, unspecified; E66.9 Obesity, unspecified; E78.5 Hyperlipidemia, unspecified; E86.9 Volume depletion, unspecified; E87.6 Hypokalemia; F25.9 Schizoaffective disorder, unspecified; F31.9 Bipolar disorder, unspecified; F41.9 Anxiety disorder, unspecified; H93.19 Tinnitus, unspecified ear; I10 Essential (primary) hypertension; J06.9 Acute upper respiratory infection, unspecified; K75.89 Other specified inflammatory liver diseases; K76.0 Fatty (change of) liver, not elsewhere classified; K80.20 Calculus of gallbladder without cholecystitis without obstruction; T46.6X5A Adverse effect of antihyperlipidemic and antiarteriosclerotic drugs, initial encounter; Z53.20 Procedure and treatment not carried out because of patient's decision for unspecified reasons; Z68.30 Body mass index [BMI] 30.0-30.9, adult; Z79.899 Other long term (current) drug therapy; Z87.820 Personal history of traumatic brain injury
CPT/HCPCS: 36415; 70450; 70553; 76705; 80053; 80061; 80074; 80329; 81001; 82550; 83605; 83690; 83735; 84100; 85025; 85610; 85730; 87502; 96360; 96361; 99285

== ENCOUNTER 2019-06-16 07:40 | Day surgery (SDC) | payer MEDICARE ==
[2019-06-15 09:23] VITALS: BMI 30.4
[~2019-06-16 07:40] MED LIST: DEXAMETHASONE SOD PHOSPHATE 10 MG/ML 1 ML VIAL IV ONE; HEPARIN SODIUM,PORCINE 5,000 UNIT/ML 1 ML VIAL SQ ONE; MIDAZOLAM 2 MG/2 ML VIAL IV PRN; ONDANSETRON 4 MG/2 ML VIAL IVP ONE; SCOPOLAMINE 1.5MG/72HR PATCH TRANSDERM ONE
[2019-06-16] MEDS ORDERED: GABAPENTIN 300 MG CAP PO STA (07:43)
[2019-06-16] MEDS ORDERED: ACETAMINOPHEN TAB 500 MG TAB PO STA (07:43)
[2019-06-16] MEDS ORDERED: INDOCYANINE GREEN 25 MG VIAL IV STA (07:43)
[2019-06-16] MEDS ORDERED: TAMSULOSIN 0.4 MG CAP.ER.24H PO STA (07:43)
--- NOTE | 2019-06-16 07:48 | P.GSHP ---
History of Present Illness H&P Date: 06/16/19 CHIEF COMPLAINT: Cholecystitis HISTORY OF PRESENT ILLNESS: The patient is a 54-year-old male who presents with history of epigastric including right upper quadrant abdominal pain. He underwent diagnostic studies for the gallbladder. Separately his clinical picture was consistent with cholecystitis. Now he presents for surgical intervention. PAST MEDICAL HISTORY: Please see list PAST SURGICAL HISTORY: Please see list MEDICATIONS: Please see list ALLERGIES: Denies. SOCIAL HISTORY: No illicit drug use or recent tobacco use FAMILY HISTORY: Pertinent for gallbladder disease REVIEW OF ORGAN SYSTEMS: CONSTITUTIONAL: No reports of fevers or chills. HEENT: Denies any troubles with the vision or hearing. ENDOCRINE: No reports of hypothyroidism. No diabetes. RESPIRATORY: No recent pneumonias. CARDIOVASCULAR: Denies chest pain or palpitations GI: No blood in stools or constipation. MUSCULOSKELETAL: Has occasional joint pain including back pain. NEURO: No seizure disorders or headaches. No recent stroke. PSYCH: No depression or suicidal ideation. HEMATOLOGIC: No personal or family history of DVTs or pulmonary emboli. PHYSICAL EXAM: VITAL SIGNS: Afebrile vital signs stable GENERAL: Well-developed pleasant male in no acute distress. HEENT: No scleral icterus. Extraocular movements grossly intact. Moist buccal mucosa. NECK: Supple without lymphadenopathy. CHEST: Unlabored respirations. Equal bilateral excursions. CARDIOVASCULAR: Regular rate regular rhythm rhythm. Distal 2+ pulses. ABDOMEN: Soft, nondistended. Tender along the epigastrium and right upper quadrant. MUSCULOSKELETAL: No clubbing, cyanosis, or edema. NEURO : No focal or lateralizing signs. Cranial nerves II-12 within normal limits. PSYCH: Alert and oriented to person, place and time. SKIN: Well perfused. Good skin turgor. ASSESSMENT: 1. Epigastric and right upper quadrant abdominal pain 2. Chronic cholecystitis PLAN: 1. Will need a robotic cholecystectomy possible open. Benefits and risks were described. 2. Heparin for DVT prophylaxis 5000 units. 3. Antibiotic prophylaxis. Past Medical History Past Medical History: Hypertension Additional Past Medical History / Comment(s): gall stones, admitted in April 2019 with rhabdomyolysis History of Any Multi-Drug Resistant Organisms: None Reported Past Surgical History: No Surgical Hx Reported Past Anesthesia/Blood Transfusion Reactions: No Reported Reaction Additional Past Anesthesia/Blood Transfusion Reaction / Comment(s): never has had general anesthesia Smoking Status: Never smoker - Past Family History Mother Family Medical History: No Reported History Medications and Allergies Home Medications Medication Instructions Recorded Confirmed Type LORazepam [Ativan] 1 mg PO BID PRN 04/25/19 06/15/19 History Metoprolol Succinate (ER) [Toprol 50 mg PO QAM 04/25/19 06/15/19 History XL] Topiramate [Topamax] 25 mg PO QAM 04/25/19 06/15/19 History Sertraline HCl [Zoloft] 100 mg PO QAM 06/15/19 06/15/19 History buPROPion HCL [Wellbutrin XL] 150 mg PO QAM 06/15/19 06/15/19 History Allergies Allergy/AdvReac Type Severity Reaction Status Date / Time atorvastatin Allergy rhabdomyoly Verified 06/15/19 09:29 sis chicken derived [Chicken] Allergy Nausea & Verified 06/15/19 09:12 Vomiting & Diarrhea Poultry [[place]] Allergy Nausea & Verified 06/15/19 09:12 Vomiting & Diarrhea
[2019-06-16] MEDS: LACTATED RINGERS 1,000 ML IV SCH ×3 (08:05→11:34)
[2019-06-16 08:40] LABS: ALT 23 U/L (4-49); AST 28 U/L (17-59); African American GFR (CKD) >90 (>60 ml/min/1.73 sqM); Albumin 4.7 g/dL (3.5-5.0); Alkaline Phosphatase 107 U/L (38-126); Anion Gap 12 mmol/L; Blood Urea Nitrogen 10 mg/dL (9-20); Calcium 9.3 mg/dL (8.4-10.2); Carbon Dioxide 23 mmol/L (22-30); Chloride 105 mmol/L (98-107); Glucose 110 mg/dL (74-99); Non-African American GFR(CKD) >90 (>60 ml/min/1.73 sqM); Potassium 3.5 mmol/L (3.5-5.1); Sodium 140 mmol/L (137-145); Total Bilirubin 1.4 mg/dL (0.2-1.3); Total Protein 7.4 g/dL (6.3-8.2)
[2019-06-16 08:47] LABS: Basophils % (A) 0 %; Eosinophils % (A) 0 %; HCT 47.5 % (39.0-53.0); HGB 16.6 gm/dL (13.0-17.5); Hyperchromasia Slight; Lymphocytes # (A) 1.9 k/uL (1.0-4.8); Lymphocytes % (A) 22 %; MCH 30.4 pg (25.0-35.0); MCHC 34.9 g/dL (31.0-37.0); Mean Platelet Volume 7.4; Monocytes # (A) 0.5 k/uL (0-1.0); Monocytes % (A) 6 %; Neutrophils % (A) 70 %; Platelet Count 154 k/uL (150-450); RBC 5.46 m/uL (4.30-5.90); RDW 12.3 % (11.5-15.5); WBC 8.5 k/uL (3.8-10.6)
[2019-06-16] MEDS ORDERED: LIDOCAINE 1% INJ 10MG/ML (20 ML MDV) ONE (09:35)
[2019-06-16] MEDS ORDERED: MIDAZOLAM 2 MG/2 ML VIAL ONE (09:35)
[2019-06-16] MEDS ORDERED: NEOSTIGMINE 1 MG/ML 10 ML VIAL ONE (09:35)
[2019-06-16] MEDS ORDERED: GLYCOPYRROLATE 0.2 MG/ML 2 ML VIAL ONE (09:35)
[2019-06-16] MEDS ORDERED: fentaNYL (PF) 50 MCG/ML 2 ML AMP ONE (09:35)
[2019-06-16] MEDS ORDERED: ROCURONIUM BROMIDE 10 MG/ML 5 ML VIAL IV ONE (09:35)
[2019-06-16] MEDS ORDERED: SUCCINYLCHOLINE CHLORIDE 100 MG/5 ML SYR IV ONE (09:35)
[2019-06-16] MEDS ORDERED: HYDROmorphone (PF) 1 MG/ML ONE (09:35)
[2019-06-16] MEDS ORDERED: INDOCYANINE GREEN 25 MG VIAL IV ONE (09:35)
[2019-06-16] MEDS ORDERED: PROPOFOL 10 MG/ML 20 ML VIAL IV ONE (09:35)
[2019-06-16] MEDS ORDERED: LABETALOL 5 MG/ML VIAL MDV ONE (09:35)
[2019-06-16] MEDS ORDERED: LIDOCAINE 1%-EPI 1:100,000 20 ML VIAL SQ ONE (10:02)
[2019-06-16 10:53] VITALS: TEMP 98.7
[2019-06-16] MEDS: HYDROmorphone 0.5 MG/0.5 ML SYRINGE IVP PRN ×2 (10:57→11:02)
[2019-06-16] MEDS ORDERED: KETOROLAC 30 MG/ML 1 ML VIAL IVP PRN (11:03)
[2019-06-16] MEDS ORDERED: HYDROcodone/APAP 5-325MG 1 EACH TAB PO PRN (11:03)
--- NOTE | 2019-06-16 11:12 | P.OP ---
Date of Procedure: 06/16/19 Description of Procedure: SURGEON: WENDY SIMONS MD PREOPERATIVE DIAGNOSES: 1. Right upper quadrant abdominal pain 2. Chronic cholecystitis 3. Elevated liver enzymes 4. Hypertensive heart disease 5. Generalized anxiety disorder 6. Depressive disorder 7. Obesity disease calories, BMI 30.4 POSTOPERATIVE DIAGNOSES: 1. Right upper quadrant abdominal pain 2. Chronic cholecystitis 3. Elevated liver enzymes 4. Hypertensive heart disease 5. Generalized anxiety disorder 6. Depressive disorder 7. Obesity disease calories, BMI 30.4 OPERATION: Robotic-assisted da Joe Xi laparoscopic cholecystectomy, multiport with FIREFLY ESTIMATED BLOOD LOSS: 5 mL. SPECIMENS REMOVED: Gallbladder. COMPLICATIONS: None. OPERATIVE FINDINGS: 1. Chronic cholecystitis INDICATIONS: The patient is a 54-year-old male who presents with cholelcystitis. Surgical intervention with a laparoscopic cholecystectomy was described at length including injury to the biliary tree, bleeding, infection, need for further surgery. Robotic assisted laparoscopic approach was described. Benefits and risks of the procedure including but not limited to bleeding, infection, injury to the biliary tree was described. Informed consent was obtained. DESCRIPTION OF PROCEDURE: Patient was brought to the operating room, placed in supine position. After general induction, the abdomen had been prepped and draped in standard sterile fashion. The robotic da Joe XI system was primed. After a timeout protocol was performed, the patient had been prepped and draped in standard sterile fashion. The patient was injected with indocyanine green. A 5 mm 0 degrees laparoscopic trocar entry was performed along the left upper quadrant. The abdomen insufflated to 15 mmHg pressure which was tolerated well. Diagnostic laparoscopy demonstrated no injury to bowel viscera or mesentery. The liver surface was unremarkable. Next, two 8 mm robotic ports were placed along the right upper abdomen. The camera 8-mm port was maintained along the epigastrium. Another 8 mm port was placed along the left upper abdominal wall after exchanging the 5 mm port. Please note that the ports were placed at least 10 to 15 cm away from the target anatomy of the gallbladder. The robot was docked along the left lateral abdomen. The patient was repositioned in reverse Trendelenburg position. Using a grasper for arm 3, a grasper for arm 4, including hook cautery for arm 1, the robotic system was docked and primed as described. Instruments were interchanged by the miller head assistant wet process including hook cautery, Bovie cautery and clip appliers. I had sat at the console. The gallbladder fundus was retracted over the dome of the liver. Initial attention was brought to the infundibulum which was gently retracted in the inferior lateral approach. Using a grasper, the cystic duct including the cystic artery was carefully skeletonized. FIREFLY was used to identify the cystic artery and cystic structures. A critical view of safety was obtained. Large PLASTIC clips were used throughout the entire case. Using a clip salvage laborer 2 clips were placed proximally, and 1 clip was placed between the infundibulum and cystic duct and divided using cautery. Next, the cystic artery was similarly clipped and cauterized. Electro-Bovie cautery was used to remove the gallbladder from the hepatic fossa. Hemostasis was checked and found to be adequate. The robot was undocked. I re-scrubbed into the case. Using a 10 mm Endo Catch bag via the left upper quadrant incision, the specimen was removed from the abdominal cavity. All pneumoperitoneum instruments were evacuated from the abdominal cavity. The incisions were reapproximated using 4-0 Monocryl in an interrupted subcuticular fashion. Fascial defects were less than 8 mm in size. Please note along the trocar sites, local anesthetic was placed as a field block prior to insertion of all instruments. Liquid glue was applied to the skin. At the end of the procedure needle, sponge, and instrument count had been verified correct by the community service technician. The patient was transferred to postanesthesia care unit in stable condition. Intraoperative films were shared with the patient's family who were very pleased with the level of care. Plan - Discharge Summary Discharge Rx Participant: No New Discharge Prescriptions: New Tamsulosin [Flomax] 0.4 mg PO DAILY #5 cap.er.24h Ibuprofen [Motrin] 600 mg PO Q8HR PRN #30 tab PRN Reason: Pain Acetaminophen Tab [Tylenol Tab] 1,000 mg PO Q6HR PRN #30 tablet PRN Reason: Pain Continue Metoprolol Succinate (ER) [Toprol XL] 50 mg PO QAM Topiramate [Topamax] 25 mg PO QAM LORazepam [Ativan] 1 mg PO BID PRN PRN Reason: Anxiety buPROPion HCL [Wellbutrin XL] 150 mg PO QAM Sertraline HCl [Zoloft] 100 mg PO QAM Discharge Medication List LORazepam [Ativan] 1 mg PO BID PRN 04/25/19 [History] Metoprolol Succinate (ER) [Toprol XL] 50 mg PO QAM 04/25/19 [History] Topiramate [Topamax] 25 mg PO QAM 04/25/19 [History] Sertraline HCl [Zoloft] 100 mg PO QAM 06/15/19 [History] buPROPion HCL [Wellbutrin XL] 150 mg PO QAM 06/15/19 [History] Acetaminophen Tab [Tylenol Tab] 1,000 mg PO Q6HR PRN #30 tablet 06/16/19 [Rx] Ibuprofen [Motrin] 600 mg PO Q8HR PRN #30 tab 06/16/19 [Rx] Tamsulosin [Flomax] 0.4 mg PO DAILY #5 cap.er.24h 06/16/19 [Rx] Follow up Appointment(s)/Referral(s): Wendy Simons MD [STAFF PHYSICIAN] - 06/20/19 Patient Instructions/Handouts: Laparoscopic Cholecystectomy (GEN) Activity/Diet/Wound Care/Special Instructions: No lifting over 10 pounds in 2 weeks until June 29. August shower. No bath tub soaks for two weeks until June 29 Diet as tolerated. No driving while on narcotics. Use Tylenol and ibuprofen or Aleve scheduled for the next 24-48 hours for best pain relief. Use ice along incisions for the today to prevent swelling. Discharge Disposition: HOME SELF-CARE
[2019-06-16] MEDS ORDERED: SIMETHICONE 80 MG CHEWABLE PO ONE (12:00)
[2019-06-16] MEDS ORDERED: IBUPROFEN 200 MG TAB PO ONE (12:03)
[2019-06-16 12:51] VITALS: BP 112/71; PULSE 70; RESP 18
== END 2019-06-16 13:11 | disposition home or self-care (01) ==
LOC: OR 07:40
PROVIDERS: ATTEND Surgery Plastic and Reconstructive Surgery
DX: K80.10 Calculus of gallbladder with chronic cholecystitis without obstruction (principal); I11.9 Hypertensive heart disease without heart failure; F41.1 Generalized anxiety disorder; F32.9 Major depressive disorder, single episode, unspecified; F25.9 Schizoaffective disorder, unspecified; E66.9 Obesity, unspecified; Z88.8 Allergy status to other drugs, medicaments and biological substances; Z91.018 Allergy to other foods; Z79.899 Other long term (current) drug therapy; Z68.30 Body mass index [BMI] 30.0-30.9, adult
CPT/HCPCS: 88304; 80053; 85025; 47562; J2250; J1644; J1100; J2710; J0690; J2405; J2001; J3010; J1170 ×2; J0330; J2704

== ENCOUNTER 2022-03-17 17:26 | Inpatient (IN) | payer MEDICARE ==
[2022-03-17] MEDS ORDERED: HALOPERIDOL LACTATE 5 MG/ML 1 ML VIAL IM PRN (20:00)
[2022-03-17] MEDS ORDERED: MAGNESIUM HYDROXIDE 2,400 MG/10 ML CUP PO PRN (20:00)
[2022-03-17] MEDS ORDERED: MAG HYDROX/AL HYDROX/SIMETH 355 ML BOTTLE PO PRN (20:00)
[2022-03-17] MEDS ORDERED: haloperidoL 5 MG TAB PO PRN (20:02)
[2022-03-17] MEDS ORDERED: LORazepam 2 MG/ML INJ IM PRN (20:02)
--- NOTE | 2022-03-18 01:41 | P.PN ---
Progress Note - Text Progress Note Date: 03/17/22 new consult , could not be evaluated at this time due to heavy sedation
[2022-03-18] MEDS ORDERED: SERTRALINE 100 MG TAB PO SCH (09:00)
[2022-03-18] MEDS ORDERED: QUEtiapine 25 MG TAB PO SCH (09:00)
[2022-03-18] MEDS: METOPROLOL SUCCINATE (ER) 50 MG TAB.ER.24H PO SCH (12:12)
[2022-03-18] MEDS: LITHIUM CARBONATE 150 MG CAP PO SCH ×2 (12:12→20:07)
[2022-03-18] MEDS: SERTRALINE 50 MG TAB PO SCH (12:12)
[2022-03-18] MEDS: NICOTINE 14MG/24HR PATCH TRANSDERM SCH (12:13)
[2022-03-18] MEDS: LORazepam 1 MG TAB PO PRN ×2 (12:15→17:51)
--- NOTE | 2022-03-18 13:48 | P.HP ---
Psychiatric H&P - . H&P Date: 03/18/22 History & Physical: Allergies Allergy/AdvReac Type Severity Reaction Status Date / Time atorvastatin Allergy rhabdomyoly Verified 12/14/21 06:56 sis chicken derived Chicken Allergy Nausea & Verified 12/14/21 06:56 Vomiting & Diarrhea Poultry [place] Allergy Nausea & Verified 12/14/21 06:56 Vomiting & Diarrhea Vital Signs Temp 98.7 F 03/17/22 23:30 Pulse 54 L 03/17/22 23:30 Resp 18 03/17/22 23:30 BP 153/74 03/17/22 23:30 Pulse Ox FiO2 Intake & Output 03/17/22 03/18/22 03/18/22 18:59 06:59 18:59 Weight 87.09 kg 03/18/22 13:39 IDENTIFYING DATA: Patient is a 57-year-old male who currently lives with his mother in a house, he did , one kid, currently retired. HPI: Patient presented to the hospital yesterday as a transfer from [facility] in [place]. Patient initially went to [facility] after self- inflicted lacerations with a razor blade in a suicide attempt on 03/08. According to past report patient cut himself in his neck twice, wrist twice as well and required surgical intervention and skin grafting. Patient had admitted that he was a suicide attempt according TPS report and had not been taking his medications. Patient was transferred to [facility] yesterday on a petition and certificate. Patient was seen wandering the hallways and agreeable to speak to aligner typewriter. Patient appeared to be anxious during the interview and was directable. He claims that he has a long history of seeing different psychiatrists and different doctors that have been giving him different medications. He states that "I'm ALLERGIC to antipsychotics" and states that he had an argument with one of his psychiatrists as she wanted to put him on a antipsychotic however he developed a headache. He states that he went to see an other psychiatrist who put him on Seroquel. He states that shortly after the psychiatrist . He claims that the Seroquel made him feel "overmedicated" and he began having suicidal thoughts. He states that his mother has a "growth under her eye" and he states that he may be cancerous. He claims that he is worried about his mother's safety. He states that he felt very overwhelmed and he "lost it" and decided to cut himself with a razor blade. He was minimizing the suicide attempt and claims that "I just scraped my arm". He appears to have poor insight and judgment. He claims that he has been feeling restless at times, racing thoughts. States that his sleep has been on and off appetite has been fair. He claims that he feels overwhelmed. He states that he has a long history of depression and denies any bipolar symptoms or manic episodes in the past. Patient denies any current suicidal or homicidal ideations intent or plan. At this time patient denies any auditory or visual hallucinations. Patient denies any current flight of ideas racing thoughts and increased in goal directed behavior. Patient admits to using no recreational drugs or cigarettes PAST PSYCHIATRIC HISTORY: Patient states that he has a history of bipolar disorder and anxiety. He claims that he was previously on Wellbutrin, BuSpar, Risperdal and also Seroquel. He states that he has "bad reactions" when he takes antipsychotics. She denies any previous psychiatric hospitalization except for when he was 21 years old. Patient followed up with different psychiatrists in the past and most recently Dr. Jimenez. Patient denies any history of suicide attempts in the past. PMH:as medicine H and P ALLERGIES: as per EMR CHEMICAL DEPENDENCY HISTORY: as per HPI FAMILY PSYCHIATRIC/SUBSTANCE USE HISTORY: claims that depression runs in his family. SOCIAL HISTORY: Patient was born and raised in [place] [place]. He states that he completed 4 years of college. 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 He claims that he is 1. He states that he is currently . He lives with his mother at this time. MENTAL STATUS EXAM: General Appearance: Patient appears to have bandages/cast on his Left arm. several lacerations that are sutured on his neck bilat and wrists, stated age is alert, directable, and attempts to cooperate. restless at times. Patient appears to have poor hygiene and grooming. Behavior: Patient is seated without any agitated behavior. anxious and restless. Speech: Patient's speech is fluent and nonpressured. Mood/Affect: Patient reports their mood is depressed and anxious, affect is congruent Suicidality/Homicidality: Patient denies having any homicidal ideation intent or plan. Denies any suicidal ideations intent or plan Perceptions: Patient denies any visual hallucinations and denies any auditory hallucinations Though content/process: There is no evidence of any delusional thought content and thought process is linear and goal-directed. focused on medications and side effects. Memory and concentration: AOX3, grossly intact for the purposes of this session. Can spell "WORLD" backwards Judgment and insight: poor STRENGTHS/WEAKNESSES: strength is that patient is resilient. Weakness is that patient has poor judgment and is impulsive INTELLECT: average IMPRESSIONS: Major depressive disorder, without psychotic features Suicide attempt PLAN: -Patient is admitted under involuntary status to [facility]HU for stabilization of psychiatric symptoms and safety. Patient has signed medication consent and is placed in patient's chart. [A second certification was completed and along with petition will be filed for court. -Medications : Will start patient on Zoloft 50 mg daily for mood/anxiety. Alternatives 6 mg daily at bedtime for insomnia. [place] 150 mg twice a day for mood adjunct. Consider Inderal if patient continues to complain of restlessness. -Ativan and Haldol PRN for agitation/aggression -Patient was informed of the risks, benefits and side effects of the medication and patient verbally consented to taking the medications. Patient signed med consent form and was placed in chart. -Internal Medicine consult to perform medical evaluation and physical. -NRT - not needed as patient does not smoke -SW on board for discharge planning. Encourage patient to participate in groups to work on coping skills. Will await deferral and court date. 03/18/22 13:47
[2022-03-18] MEDS: hydrOXYzine pamoate 25 MG CAP PO PRN (15:56)
[2022-03-18] MEDS: MELATONIN 3 MG TABLET PO SCH (20:07)
--- NOTE | 2022-03-19 00:17 | P.MDCNMH ---
History of Present Illness H&P Date: 03/18/22 Chief Complaint: medical evaluation 57 year old male with uncontrolled hypertension transferred from [facility] for inpatient [facility] admission. he presented initially to [facility] requiring surgical repairs of his self inflicted wounds. he claims that he is allergic to antipsychotics, and when his psychiatrist put him on some, he had a "reaction" to them resulted in suicidal ideation. he used a razor and inflicted multiple wounds in his forearms and neck. he denies any fever, chills, nausea vomiting, chest pain , cough , trouble breathing, abd pain , changes in bowel or urinary habits he denies tobacco smoking, street drugs or heavy alcohol Review of Systems Pertinent positives as noted in HPI. All other systems were reviewed and are negative Past Medical History Past Medical History: Hypertension Additional Past Medical History / Comment(s): gall stones, admitted in April 2019 with rhabdomyolysis History of Any Multi-Drug Resistant Organisms: None Reported Past Surgical History: Cholecystectomy Past Anesthesia/Blood Transfusion Reactions: No Reported Reaction Additional Past Anesthesia/Blood Transfusion Reaction / Comment(s): never has had general anesthesia Past Psychological History: Anxiety, Bipolar, Depression, Schizoaffective Disorder Smoking Status: Never smoker Past Alcohol Use History: None Reported Past Drug Use History: None Reported - Past Family History Mother Family Medical History: No Reported History Additional Family Medical History / Comment(s): denies CAD or CA Medications and Allergies Home Medications Medication Instructions Recorded Confirmed Type LORazepam [Ativan] 1 mg PO BID PRN 04/25/19 06/15/19 History Metoprolol Succinate (ER) [Toprol 50 mg PO QAM 04/25/19 06/16/19 History XL] Topiramate [Topamax] 25 mg PO QAM 04/25/19 06/16/19 History Sertraline HCl [Zoloft] 100 mg PO QAM 06/15/19 06/15/19 History buPROPion HCL [Wellbutrin XL] 150 mg PO QAM 06/15/19 06/15/19 History Acetaminophen Tab [Tylenol Tab] 1,000 mg PO Q6HR PRN #30 tablet 06/16/19 Rx Ibuprofen [Motrin] 600 mg PO Q8HR PRN #30 tab 06/16/19 Rx Tamsulosin [Flomax] 0.4 mg PO DAILY #5 cap.er.24h 06/16/19 Rx Allergies Allergy/AdvReac Type Severity Reaction Status Date / Time atorvastatin Allergy rhabdomyoly Verified 12/14/21 06:56 sis chicken derived [Chicken] Allergy Nausea & Verified 12/14/21 06:56 Vomiting & Diarrhea Poultry [[place]] Allergy Nausea & Verified 12/14/21 06:56 Vomiting & Diarrhea Physical Exam Constitutional: No acute distress, cooperative Eyes: Anicteric sclerae, moist conjunctiva, Pupils equal round reactive to light ENMT: NC/AT Oropharynx clear, no erythema, or exudates Neck: Supple no masses, or JVD No carotid bruits No thyromegaly Lungs: Clear to auscultation Clear to percussion Normal respiratory effort, no accessory muscle use Cardiovascular: Heart regular in rate and rhythm, No murmurs, gallops, or rubs No peripheral edema Abdominal: Soft Nontender, no guarding, rebound or rigidity Abdomen moving with respiration Normoactive bowel sounds Skin: right forearm with multiple stitches , right forearm in surgical dressin g, bilateral neck with superficial healing wounds , otherwise Normal temperature, tone, texture, turgor Extremities: No digital cyanosis No clubbing Pedal pulses intact and symmetrical Radial pulses intact and symmetrical No calf tenderness Psychiatric: Alert and oriented to person, place and time Neuro Muscles Strength 5/5 in all 4 extremities Sensation to light touch grossly present throughout Cranial nerves II-XII grossly intact Lymphatics: no palpable cervical or supraclavicular , lymph nodes Cranial Nerve Examination - Cranial Nerves Cranial Nerve II- Optic: Intact Cranial Nerve III- Oculomotor: Intact Cranial Nerve IV- Trochlear: Intact Cranial Nerve V- Trigeminal: Intact Cranial Nerve - Abducens: Intact Cranial Nerve VII- Facial: Intact Cranial Nerve VIII- Auditory: Intact Cranial Nerve IX- Glossopharyngeal: Intact Cranial Nerve X- Vagus: Intact Cranial Nerve XI- Accessory: Intact Cranial Nerve XII- Hypoglossal: Intact Assessment and Plan Assessment: acute psychosis , suicidal ideation management per psych uncontrolled hypertension resume metoprolol initiate low dose amlodipine 2.5 mg daily monitor V/S thank you for your consultation , dont hesitate to contact [facility] with any medical concerns
[2022-03-19] MEDS: amLODIPine 2.5 MG TAB PO SCH (08:40)
[2022-03-19] MEDS: LITHIUM CARBONATE 150 MG CAP PO SCH ×2 (08:40→21:09)
[2022-03-19] MEDS: METOPROLOL SUCCINATE (ER) 50 MG TAB.ER.24H PO SCH (08:41)
[2022-03-19] MEDS: NICOTINE 14MG/24HR PATCH TRANSDERM SCH (08:41)
[2022-03-19] MEDS: SERTRALINE 50 MG TAB PO SCH (08:41)
--- NOTE | 2022-03-19 10:21 | P.PN ---
Progress Note - Text Progress Note Date: 03/19/22 Interval History: Patient was seen wandering the hallways and was directable and agreeable to yen cantu with tag writer in the office. Patient states that he has been going to all the groups at this time. He states that he is doing a bit better from yesterday. He claims that his anxiety and move up and gradually improving. He claims that he has been eating fairly at this time. He states that he still feels restless at times making needs to move however at that has been improving. He claims katherin t he is trying to socialize on the unit with other people. He appears to be less anxious during conversation today more directable. At this time patient denies any suicidal or homical ideations, intent or plan. Patient denies any auditory, visual hallucinations and denies any paranoia or delusions. Patient denies any side effects from the medications and has been compliant with meds. Mental Status Exam: General Appearance: Patient appears to have bandages/cast on his Left arm. several lacerations that are sutured on his neck bilat and wrists, stated age is alert, directable, and attempts to cooperate. less restless. Patient appears to have improving hygiene and grooming. Behavior: Patient is seated without any agitated behavior. less anxious and restless today. Speech: Patient's speech is fluent and nonpressured. Mood/Affect: Patient reports their mood is depressed and anxious, improving mildly, affect is congruent Suicidality/Homicidality: Patient denies having any homicidal ideation intent or plan. Denies any suicidal ideations intent or plan Perceptions: Patient denies any visual hallucinations and denies any auditory hallucinations Though content/process: There is no evidence of any delusional thought content and thought process is linear and goal-directed. Memory and concentration: AOX3, grossly intact for the purposes of this session. Judgment and insight: improving mildly IMPRESSIONS: Major depressive disorder, without psychotic features Suicide attempt Plan: -Patient continues to meet criteria for inpatient psychiatric admission for symptom stabilization and safety. Patient has signed medication consent and was placed in patient's chart. -Medications: increase Zoloft 100 mg daily for mood/anxiety. Melatonin 6 mg daily at bedtime for insomnia. [place] 150 mg twice a day for mood adjunct. Consider Inderal if patient continues to complain of restlessness. -When necessary Ativan and Haldol for agitation/aggression. -NRT - not needed as patient does not smoke -SW on board for discharge planning. Encouraged the patient to participate in milieu. Will await deferral and court date.
[2022-03-19] MEDS: hydrOXYzine pamoate 25 MG CAP PO PRN ×2 (11:10→18:01)
[2022-03-19] MEDS: PROPRANOLOL 20 MG TAB PO PRN ×2 (13:02→21:14)
[2022-03-19] MEDS: LORazepam 1 MG TAB PO PRN (14:47)
[2022-03-19] MEDS: ACETAMINOPHEN TAB 325 MG TAB PO PRN (18:00)
[2022-03-19] MEDS: MELATONIN 3 MG TABLET PO SCH (21:09)
[2022-03-20] MEDS: ACETAMINOPHEN TAB 325 MG TAB PO PRN ×3 (08:17→17:44)
[2022-03-20] MEDS: LORazepam 1 MG TAB PO PRN ×2 (08:18→20:52)
[2022-03-20] MEDS: METOPROLOL SUCCINATE (ER) 50 MG TAB.ER.24H PO SCH (08:18)
[2022-03-20] MEDS: amLODIPine 2.5 MG TAB PO SCH (08:18)
[2022-03-20] MEDS: LITHIUM CARBONATE 150 MG CAP PO SCH ×2 (08:18→20:50)
[2022-03-20] MEDS ORDERED: SERTRALINE 100 MG TAB PO SCH (09:00)
--- NOTE | 2022-03-20 12:28 | P.GSCN ---
History of Present Illness Consult date: 03/20/22 History of present illness: CHIEF COMPLAINT: Depression HISTORY OF PRESENT ILLNESS: This is a 57-year-old male who is currently admitted to the psychiatric unit after a suicide attempt. Patient initially went to [facility] after self-inflicted lacerations to both wrists with a razor blade on 03/08/2022. Patient then was transferred to [facility]. Patient reports that he had surgery on left wrist and forearm with Dr. Michael and right wrist/forearm was sutured. Surgical service was consulted in regards to the wrist lacerations. Patient does report that the dressing was changed on his left wrist by nurse and it had looked fine. He is in a partial cast. He does reports pain is controlled. Denies any fever, chills or sweats. Denies any drainage from the incision on the right forearm. Patient does reports positional numbness in the left fingers at times. Currently he denies any numbness. Patient has a known psychiatric history. PAST MEDICAL HISTORY: See below PAST SURGICAL HISTORY: See below MEDICATIONS: See below ALLERGIES: See below SOCIAL HISTORY: No illicit drug use. REVIEW OF SYSTEMS: CONSTITUTIONAL: Denies fever or chills. HEENT: Denies blurred vision, vision changes, or eye pain. Denies hemoptysis CARDIOVASCULAR: Denies chest pain or pressure. RESPIRATORY: No shortness of breath. GASTROINTESTINAL: See HPI for pertinent findings HEMATOLOGIC: Denies bleeding disorders. GENITOURINARY: Denies any blood in urine or increased urinary frequency. SKIN: Denies pruitis. Denies rash. PHYSICAL EXAM: VITAL SIGNS: Reviewed GENERAL: Well-developed in no acute distress. HEENT: No sclera icterus. Extraocular movements grossly intact. Moist buccal mucosa. Head is atraumatic, normocephalic. No nasal drainage. ABDOMEN: Soft. Nondistended. Nontender NEUROLOGIC: Alert and oriented. Cranial nerves II through XII grossly intact. Extremities: Right wrist and forearm laceration with sutures intact. No drainage. Erythema noted at incision site. +2 right radial pulse . Left arm is in a partial cast. Dressing is clean and dry. Patient has mobility in his fingers. He has full sensation in fingertips. Capillary refills +2 LABORATORY DATA: no new labs IMAGING: ASSESSMENT: 1. Depression and suicide attempt with self-inflicted laceration to both forearms PLAN: -Recommend orthopedic consult -Continue local wound care -Continue supportive care -Continue pain management Thank you for this consultation Physician Culinary Manager note has been reviewed by physician. Signing provider agrees with the documented findings, assessment, and plan of care. I have personally seen and examined the patient, reviewed the CHIEF SCIENTIFIC OFFICER /PAs history, exam and MDM and agree with the assessment and plan as written. Based on total visit time, I have performed more than 50% of the visit. As above: Patient with self-inflicted wounds. These were apparently addressed at [facility] by plastic surgery and orthopedics. The laceration site right forearm/wrist healing appropriately. The dressing was changed on the left side per nursing staff yesterday after they discussed his case with the plastic surgeon who performed the grafting. This is not really a general surgery issue at this time. Would defer to plastics and orthopedics regarding any further intervention or care. Dressings have been ordered and as long as the patient is not having any new issues I think he probably could just follow up with the surgical groups upon discharge that performed the surgery. We'll sign off. Please call if needed. Past Medical History Past Medical History: Hypertension Additional Past Medical History / Comment(s): gall stones, admitted in April 2019 with rhabdomyolysis History of Any Multi-Drug Resistant Organisms: None Reported Past Surgical History: Cholecystectomy Past Anesthesia/Blood Transfusion Reactions: No Reported Reaction Additional Past Anesthesia/Blood Transfusion Reaction / Comm: never has had general anesthesia Past Psychological History: Anxiety, Bipolar, Depression, Schizoaffective Disorder Smoking Status: Never smoker Past Alcohol Use History: None Reported Past Drug Use History: None Reported - Past Family History Mother Family Medical History: No Reported History Additional Family Medical History / Comment(s): denies CAD or CA Medications and Allergies Home Medications Medication Instructions Recorded Confirmed Type LORazepam [Ativan] 1 mg PO BID PRN 04/25/19 06/15/19 History Metoprolol Succinate (ER) [Toprol 50 mg PO QAM 04/25/19 06/16/19 History XL] Topiramate [Topamax] 25 mg PO QAM 04/25/19 06/16/19 History Sertraline HCl [Zoloft] 100 mg PO QAM 06/15/19 06/15/19 History buPROPion HCL [Wellbutrin XL] 150 mg PO QAM 06/15/19 06/15/19 History Acetaminophen Tab [Tylenol Tab] 1,000 mg PO Q6HR PRN #30 tablet 06/16/19 Rx Ibuprofen [Motrin] 600 mg PO Q8HR PRN #30 tab 06/16/19 Rx Tamsulosin [Flomax] 0.4 mg PO DAILY #5 cap.er.24h 06/16/19 Rx Allergies Allergy/AdvReac Type Severity Reaction Status Date / Time atorvastatin Allergy rhabdomyoly Verified 12/14/21 06:56 sis chicken derived [Chicken] Allergy Nausea & Verified 12/14/21 06:56 Vomiting & Diarrhea Poultry [[place]] Allergy Nausea & Verified 12/14/21 06:56 Vomiting & Diarrhea Surgical - Exam Vital Signs Temp Pulse Resp BP 98.7 F 54 L 18 153/74 03/17/22 23:30 03/17/22 23:30 03/17/22 23:30 03/17/22 23:30
[2022-03-20] MEDS: PROPRANOLOL 20 MG TAB PO PRN (12:30)
--- NOTE | 2022-03-20 13:54 | P.PN ---
Progress Note - Text Progress Note Date: 03/20/22 Interval History: Patient was seen today for psychiatric follow-up and he was wandering the [place] and was agreeable to speak in the mortgage underwriter's office. Patient states that he has been going to all the groups at this time. He states that he is doing better in terms of his restlessness and akathisia. He claims that he is willing to try a higher dose of propranolol. He thanked mortgage underwriter several times for helping him. He continues to state that he does not want to be on an antipsychotic. He claims that his anxiety and mood have been improving overall since being admitted. He claims that he was able to sleep fairly last night. He claims that he is trying to socialize on the unit with other people. He appears to be less anxious during conversation today more directable. At this time patient denies any suicidal or homical ideations, intent or plan. Patient denies any auditory, visual hallucinations and denies any paranoia or delusions. Patient denies any side effects from the medications and has been compliant with meds. Mental Status Exam: General Appearance: Patient appears to have bandages/cast on his Left arm. several lacerations that are sutured on his neck bilat and wrists, stated age is alert, directable, and attempts to cooperate. less restless. Patient appears to have improving hygiene and grooming. Behavior: Patient is seated without any agitated behavior. less anxious today. Speech: Patient's speech is fluent and nonpressured. Mood/Affect: Patient reports their mood is improving mildly, affect is congruent Suicidality/Homicidality: Patient denies having any homicidal ideation intent or plan. Denies any suicidal ideations intent or plan Perceptions: Patient denies any visual hallucinations and denies any auditory hallucinations Though content/process: There is no evidence of any delusional thought content and thought process is linear and goal-directed. Focused on his medications. Memory and concentration: AOX3, grossly intact for the purposes of this session. Judgment and insight: improving mildly IMPRESSIONS: Major depressive disorder, without psychotic features Suicide attempt Plan: -Patient continues to meet criteria for inpatient psychiatric admission for symptom stabilization and safety. Patient has signed medication consent and was placed in patient's chart. -Medications: increase Zoloft 150 mg daily for mood/anxiety for wednesday. Melatonin 6 mg daily at bedtime for insomnia. [place] 150 mg twice a day for mood adjunct. increase inderal to 30 mg tid prn for akithesia. -When necessary Ativan and Haldol for agitation/aggression. -NRT - not needed as patient does not smoke -SW on board for discharge planning. Encouraged the patient to participate in milieu. Will await deferral and court date. likely discharge next week.
[2022-03-20] MEDS: PROPRANOLOL 10 MG TAB PO PRN (18:17)
[2022-03-20] MEDS: MELATONIN 3 MG TABLET PO SCH (20:50)
[2022-03-21] MEDS: METOPROLOL SUCCINATE (ER) 50 MG TAB.ER.24H PO SCH (08:17)
[2022-03-21] MEDS: amLODIPine 2.5 MG TAB PO SCH (08:17)
[2022-03-21] MEDS: LITHIUM CARBONATE 150 MG CAP PO SCH ×2 (08:17→20:33)
[2022-03-21] MEDS: ACETAMINOPHEN TAB 325 MG TAB PO PRN (08:19)
[2022-03-21] MEDS ORDERED: SERTRALINE 100 MG TAB PO ONE (09:00)
[2022-03-21] MEDS: PROPRANOLOL 10 MG TAB PO PRN (09:44)
--- NOTE | 2022-03-21 10:36 | P.CNOR ---
History of Present Illness - [facility] Consult date: 03/21/22 History of present illness: The patient is a very pleasant 57-year-old male who is presently admitted to the psychiatric unit after an attempt at suicide. According to both the patient and his chart he sustained self-inflicted lacerations to both of his wrists with a razor blade on 03/08/2022. He was initially seen at [facility] and was then transferred to [facility] he underwent surgical repair of the left wrist by . Due to lack of psychiatric beds at that facility he was transferred here. At the time of my evaluation the patient is doing well and denies any significant pain in either wrist. He has multiple questions about follow-up, routine care, and restrictions. Past Medical History Past Medical History: Hypertension Additional Past Medical History / Comment(s): gall stones, admitted in April 2019 with rhabdomyolysis History of Any Multi-Drug Resistant Organisms: None Reported Past Surgical History: Cholecystectomy Past Anesthesia/Blood Transfusion Reactions: No Reported Reaction Additional Past Anesthesia/Blood Transfusion Reaction / Comm: never has had general anesthesia Past Psychological History: Anxiety, Bipolar, Depression, Schizoaffective Disorder Smoking Status: Never smoker Past Alcohol Use History: None Reported Past Drug Use History: None Reported - Past Family History Mother Family Medical History: No Reported History Additional Family Medical History / Comment(s): denies CAD or CA Medications and Allergies Home Medications Medication Instructions Recorded Confirmed Type LORazepam [Ativan] 1 mg PO BID PRN 04/25/19 06/15/19 History Metoprolol Succinate (ER) [Toprol 50 mg PO QAM 04/25/19 06/16/19 History XL] Topiramate [Topamax] 25 mg PO QAM 04/25/19 06/16/19 History Sertraline HCl [Zoloft] 100 mg PO QAM 06/15/19 06/15/19 History buPROPion HCL [Wellbutrin XL] 150 mg PO QAM 06/15/19 06/15/19 History Acetaminophen Tab [Tylenol Tab] 1,000 mg PO Q6HR PRN #30 tablet 06/16/19 Rx Ibuprofen [Motrin] 600 mg PO Q8HR PRN #30 tab 06/16/19 Rx Tamsulosin [Flomax] 0.4 mg PO DAILY #5 cap.er.24h 06/16/19 Rx Allergies Allergy/AdvReac Type Severity Reaction Status Date / Time atorvastatin Allergy rhabdomyoly Verified 12/14/21 06:56 sis chicken derived [Chicken] Allergy Nausea & Verified 12/14/21 06:56 Vomiting & Diarrhea Poultry [[place]] Allergy Nausea & Verified 12/14/21 06:56 Vomiting & Diarrhea Physical Examination The patient is alert and easily able to answer questions. He is in no apparent distress. He demonstrates nonlabored breathing with symmetric chest expansion Right upper extremity: On inspection of the right wrist there is a longitudinal traumatic laceration over the volar aspect of the distal forearm with nylon sutures in place. There is mild wong-incisional erythema but no fluctuance or drainage. The fingers are warm and well perfused. Left upper extremity: On inspection of the patient's left wrist there is a surg ical dressing and splint in place. The fingers appear warm and well perfused with brisk capillary refill. Assessment and Plan Assessment: Self-inflicted lacerations to both wrists Closure of right wrist self inflicted laceration and outside facility Surgical repair of left wrist self-inflicted laceration at outside facility by another surgeon Plan: I would recommend continued local wound care to the right wrist laceration and leaving the surgical dressing in place over the left wrist. I have no plans for any intervention at this time. The patient had multiple questions about follow-up, restrictions, and long-term prognosis. I would recommend contacting the treating surgeon for any and all questions regarding his care going forward if more detailed instructions are needed. I discussed with the patient that I do not perform hand or wrist surgery and his present injuries and surgical repair of the left wrist are outside of my scope of practice. All follow-up should be with his surgeon following discharge. Please call with any further questions. I will sign off at this time. Time with Patient: Greater than 30
[2022-03-21] MEDS: LORazepam 1 MG TAB PO PRN (14:01)
--- NOTE | 2022-03-21 19:29 | P.PN ---
Progress Note - Text Progress Note Date: 03/21/22 Interval history: Patient was seen isolating to his room and was directable and agreeable to speak with pattern chart writer. He reports his mood is "good" but he appears irritable. At this time patient denies any suicidal or homicidal ideation, intent or plan. Denies any auditory or visual hallucinations. Patient denies any side effects from the medications and has been compliant with meds. He inquires about when his stitches will be removed. He was already seen by the orthopedic surgeon this morning who recommends outpatient follow-up and will not plan any intervention at this time, however patient does not appear to recall this today. Mental status exam: General Appearance: Patient appears to be stated age, left arm wrapped, and self-inflicted wound with stitches visible on right arm. Behavior: No agitated behavior. Patient is calm and directable. Speech: Patient's speech is fluent and non-pressured. Mood/Affect: Mood is improving mildly, affect is congruent and constricted. Suicidality/Homicidality: Patient denies having any suicidal or homicidal ideation intent or plan. Perceptions: Patient denies any auditory or visual hallucinations. Though content/process: There is no evidence of any delusional thought content, however thought distortions are evident. Thought process is linear. Memory and concentration: AOX3, grossly intact for the purposes of this session Judgment and insight: improving mildly Assessment/Plan: Continue with current diagnosis. Patient continues to meet criteria for inpatient psychiatric admission for symptom stabilization and safety. Patient will be maintained on current psychotropic medication regimen. Monitor for medication compliance and for any psychotropic medication side effects. Will continue to monitor ongoing response to treatment. Encouraged participation in milieu.
[2022-03-21] MEDS: MELATONIN 3 MG TABLET PO SCH (20:33)
[2022-03-22 07:03] VITALS: RESP 14
[2022-03-22] MEDS: LITHIUM CARBONATE 150 MG CAP PO SCH ×2 (08:53→20:46)
[2022-03-22] MEDS: SERTRALINE 50 MG TAB PO SCH (08:53)
[2022-03-22] MEDS: METOPROLOL SUCCINATE (ER) 50 MG TAB.ER.24H PO SCH (08:53)
[2022-03-22] MEDS: amLODIPine 2.5 MG TAB PO SCH (08:53)
[2022-03-22] MEDS: PROPRANOLOL 10 MG TAB PO PRN (09:05)
--- NOTE | 2022-03-22 15:25 | P.PN ---
Progress Note - Text Progress Note Date: 03/22/22 Interval history: Patient was seen isolating to his room and was directable and agreeable to speak with policy writer sales. He reports his mood is "good" and states the medication "is working great!" and hopes to go home soon. At this time patient denies any suicidal or homicidal ideation, intent or plan. Denies any auditory or visual hallucinations. Patient denies any side effects from the medications and has been compliant with meds. He continues to report frustration with this arms being bandaged but agrees he will follow-up outpatient with the surgeon to have stitches removed. Mental status exam: General Appearance: Patient appears to be stated age, left arm wrapped, and s elf-inflicted wound with stitches visible on right arm. Behavior: No agitated behavior. Patient is directable. Speech: Patient's speech is fluent and non-pressured. Mood/Affect: Mood is improving mildly, affect is congruent and constricted. Suicidality/Homicidality: Patient denies having any suicidal or homicidal ideation intent or plan. Perceptions: Patient denies any auditory or visual hallucinations. Though content/process: There is no evidence of any delusional thought content, however thought distortions are evident. Thought process is linear. Memory and concentration: AOX3, grossly intact for the purposes of this session Judgment and insight: improving mildly Assessment/Plan: Continue with current diagnosis. Patient continues to meet criteria for inpatient psychiatric admission for symptom stabilization and safety. Patient will be maintained on current psychotropic medication regimen. Monitor for medication compliance and for any psychotropic medication side effects. Will continue to monitor ongoing response to treatment. Encouraged participation in milieu.
[2022-03-22] MEDS: LORazepam 1 MG TAB PO PRN (15:51)
[2022-03-22] MEDS: ACETAMINOPHEN TAB 325 MG TAB PO PRN ×2 (15:51→20:45)
[2022-03-22] MEDS: MELATONIN 3 MG TABLET PO SCH (20:45)
[2022-03-23 07:00] VITALS: TEMP 98.7
[2022-03-23] MEDS: METOPROLOL SUCCINATE (ER) 50 MG TAB.ER.24H PO SCH (08:32)
[2022-03-23] MEDS: amLODIPine 2.5 MG TAB PO SCH (08:32)
[2022-03-23] MEDS: LITHIUM CARBONATE 150 MG CAP PO SCH (08:32)
[2022-03-23] MEDS: SERTRALINE 50 MG TAB PO SCH (08:32)
[2022-03-23] MEDS: PROPRANOLOL 10 MG TAB PO PRN (08:33)
[2022-03-23 08:34] VITALS: BP 120/73; PULSE 65
[2022-03-23] MEDS: ACETAMINOPHEN TAB 325 MG TAB PO PRN (09:05)
[2022-03-23] MEDS: LORazepam 1 MG TAB PO PRN (09:07)
--- NOTE | 2022-03-23 10:20 | P.DS ---
Providers Date of admission: 03/17/22 22:19 Expected date of discharge: 03/23/22 Attending physician: Russ Moreno MD Consults: 03/17/22 20:00 Consult Physician Routine Consulting Provider: Farhat Bird Consult Reason/Comments: H&P and medical Do you want consulting provider notified?: Yes 03/19/22 14:40 Consult Physician Routine Consulting Provider: Dustin Correa Consult Reason/Comments: left flexor tendon laceration of right wrist with open wound. Do you want consulting provider notified?: Yes 03/20/22 10:46 Consult Physician Routine Consulting Provider: Manny Owen Consult Reason/Comments: left and right wrist laceration Do you want consulting provider notified?: Yes Primary care physician: Ángel Way - Discharge Diagnosis(es) (1) Major depressive disorder without psychotic features Current Visit: Yes Status: Acute Priority: High (2) Suicide attempt Current Visit: Yes Status: Acute Priority: High (3) Generalized anxiety disorder Current Visit: Yes Status: Acute Priority: Medium Hospital Course: Admission HPI: Admission note was completed by marketing writer "Patient is a 57-year-old male who currently lives with his mother in a house, he did , one kid, currently retired. Patient presented to the hospital yesterday as a [facility] [place]. Patient initially went to [facility] after self-inflicted lacerations with a razor blade in a suicide attempt on 03/08. According to past report patient cut himself in his neck twice, wrist twice as well and required surgical intervention and skin grafting. Patient had admitted that he was a suicide attempt according TPS report and had not been taking his medications. Patient was transferred to [facility] yesterday on a petition and certificate. Patient was seen wandering the hallways and agreeable to speak to marketing writer. Patient appeared to be anxious during the interview and was directable. He claims that he has a long history of seeing different psychiatrists and different doctors that have been giving him different medications. He states that "I'm ALLERGIC to antipsychotics" and states that he had an argument with one of his psychiatrists as she wanted to put him on a antipsychotic however he developed a headache. He states that he went to see another psychiatrist who put him on Seroquel. He states that shortly after the psychiatrist . He claims that the Seroquel made him feel "overmedicated" and he began having suicidal thoughts. He states that his mother has a "growth under her eye" and he states that he may be cancerous. He claims that he is worried about his mother's safety. He states that he felt very overwhelmed and he "lost it" and decided to cut himself with a razor blade. He was minimizing the suicide attempt and claims that "I just scraped my arm". He appears to have poor insight and judgment. He claims that he has been feeling restless at times, racing thoughts. States that his sleep has been on and off appetite has been fair. He claims that he feels overwhelmed. He states that he has a long history of depression and denies any bipolar symptoms or manic episodes in the past. Patient denies any current suicidal or homicidal ideations intent or plan. At this time patient denies any auditory or visual hallucinations. Patient denies any current flight of ideas racing thoughts and increased in goal directed behavior. Patient admits to using no recreational drugs or cigarettes" Hospital course: Upon admission to the unit patient was admitted involuntarily on a petition and certificate and a second certificate was completed and faxed with the courts. Patient ended up signing a deferral with the employment law attorney and agreeing to treatment. Patient got along well with other patients on the unit and followed unit protocol. Patient was compliant with the medications and denied any side effects throughout hospital course. Patient did however complain of ongoing akathisia/restlessness along with severe anxiety. Patient was started on Zoloft and increased to a dose of 50 mg daily for mood/anxiety, melatonin 6 mg daily at bedtime for insomnia, lithium 150 mg twice a day for mood adjunct/suicidal thoughts, propranolol 30 mg twice a day as needed for akathisia. Patient spoke of his stressors and engaged in therapy both group and individual. Patient was also seen by medical team for history and physical exam. patient was seen by both orthopedics and gen surgery for arm lacerations and recommended to follow up with surgeon who did the initial arm/tendon repair. No surgical intervention was recommended at this time. Throughout the course of the hospitalization patient gradually improved with regards to mood, anxiety, suicidal thoughts, sleep and became more future oriented with improved insight and judgment. On the day of discharge patient denied any suicidal or homicidal ideations intent or plan denied any auditory or visual hallucinations. Patient endorsed wanting to live for his health and family. The patient denied any access to guns or weapons. Patient denied any paranoia and did not endorse any delusions. Patient does not have a significant history of substance abuse was counseled on abstaining from all substances including alcohol and marijuana. Patient was also counseled on the medications and need for regular compliance and was encouraged to follow-up with their outpatient appointment for mental health and also for primary care. Prior to discharge a family meeting will be arranged by social psychologist to answer any questions and ensure safety upon discharge. seafood process worker to ensure that he home environment is safe with no guns or weapons. Mental status exam: General Appearance: Patient appears to be tall, has a cast on his left arm, stated age is alert, pleasant, and cooperative. Patient is in no acute distress and has improved hygiene and grooming Behavior: Patient is calmly seated without any agitated behavior. Speech: Patient's speech is fluent and nonpressured. Mood/Affect: Patient reports their mood is "better", affect is congruent and euthymic. Suicidality/Homicidality: Patient denies having any suicidal or homicidal ideation intent or plan. Perceptions: Patient denies any auditory or visual hallucinations. Though content/process: There is no evidence of any delusional thought content and thought process is linear and goal-directed. more future oriented Memory and concentration: AOX3, grossly intact for the purposes of this session. Can spell "WORLD" backwards correctly. Judgment and insight: improved with guarded prognosis Impression: Major depressive disorder, without psychotic features Generalized anxiety disorder Suicide attempt Plan: -Continue with discharge today as patient has improved and stabilized psychiatrically and is not currently an imminent threat to himself and/or others. Patient will remain at chronically elevated risk for harm to self and/or others due to his impulsivity and history of severe suicide attempt. -Continue medications: Zoloft 150 mg daily for mood/90, melatonin 6 mg daily at bedtime for insomnia, lithium 150 mg twice a day for mood adjunct/suicidal thoughts, Inderal 30 mg twice a day when necessary for akathisia/restlessness. -Patient was counseled on the need for medication compliance and appropriate follow-up at mental health and also primary care for medical issues. Patient verbalized understanding and agreed. -Social work to arrange for and conduct family meeting to ensure safety upon discharge and answer any questions/concerns. seafood process worker also to ensure that home environment is stable with no guns or weapons. Social work also to arrange for patients follow up appointments for psychiatric care along with follow up with primary care provider. Patient will need to follow up with his previous surgeon in [place] who performed laceration repair on his arms prioir to transfer. -Patient counseled on abstaining from recreational drugs and marijuana and alcohol. Was informed/educated on the adverse effects on their physical and mental health. Patient verbally agreed and understood. -Patient was instructed to return to the hospital or seek immediate medical care if their psychiatric or medical symptoms do worsen or reoccur. Allergies Allergy/AdvReac Type Severity Reaction Status Date / Time atorvastatin Allergy rhabdomyoly Verified 12/14/21 06:56 sis chicken derived [Chicken] Allergy Nausea & Verified 12/14/21 06:56 Vomiting & Diarrhea Poultry [[place]] Allergy Nausea & Verified 12/14/21 06:56 Vomiting & Diarrhea Vital Signs Temp 98.7 F 03/23/22 06:47 Pulse 65 03/23/22 08:34 Resp 14 03/23/22 06:47 BP 120/73 03/23/22 08:34 Pulse Ox 99 03/19/22 06:35 FiO2 Patient Condition at Discharge: Stable Plan - Discharge Summary New Discharge Prescriptions: New Propranolol [Inderal] 30 mg PO BID PRN 30 Days tab PRN Reason: restlessness amLODIPine [Norvasc] 2.5 mg PO DAILY 30 Days tab Sertraline [Zoloft] 150 mg PO DAILY 30 Days tab [place] Carbonate 150 mg PO BID 30 Days cap Melatonin 6 mg PO HS 30 Days tab Metoprolol Succinate (ER) [Toprol XL] 25 mg PO DAILY 30 Days tab Acetaminophen Tab [Tylenol] 650 mg PO Q4HR PRN tab PRN Reason: Pain/Discomfort hydrOXYzine pamoate [Vistaril] 50 mg PO BID PRN 30 Days cap PRN Reason: Anxiety Continue Ibuprofen [Motrin] 600 mg PO Q8HR PRN #30 tab PRN Reason: Pain Discontinued Metoprolol Succinate (ER) [Toprol XL] 50 mg PO QAM Topiramate [Topamax] 25 mg PO QAM LORazepam [Ativan] 1 mg PO BID PRN PRN Reason: Anxiety buPROPion HCL [Wellbutrin XL] 150 mg PO QAM Sertraline HCl [Zoloft] 100 mg PO QAM Tamsulosin [Flomax] 0.4 mg PO DAILY #5 cap.er.24h Acetaminophen Tab [Tylenol Tab] 1,000 mg PO Q6HR PRN #30 tablet PRN Reason: Pain Discharge Medication List Ibuprofen [Motrin] 600 mg PO Q8HR PRN #30 tab 06/16/19 [Rx] Acetaminophen Tab [Tylenol] 650 mg PO Q4HR PRN tab 03/23/22 [Rx] [place] Carbonate 150 mg PO BID 30 Days cap 03/23/22 [Rx] Melatonin 6 mg PO HS 30 Days tab 03/23/22 [Rx] Metoprolol Succinate (ER) [Toprol XL] 25 mg PO DAILY 30 Days tab 03/23/22 [Rx] Propranolol [Inderal] 30 mg PO BID PRN 30 Days tab 03/23/22 [Rx] Sertraline [Zoloft] 150 mg PO DAILY 30 Days tab 03/23/22 [Rx] amLODIPine [Norvasc] 2.5 mg PO DAILY 30 Days tab 03/23/22 [Rx] hydrOXYzine pamoate [Vistaril] 50 mg PO BID PRN 30 Days cap 03/23/22 [Rx] Follow up Appointment(s)/Referral(s): Haroldo Michael MD [STAFF PHYSICIAN] - 1 Week (Follow up regarding your surgery and wound care.) Activity/Diet/Wound Care/Special Instructions: Avoid the use of street drugs and alcohol. Take all prescriptions as prescribed. When you are in need of refills on your medications, please contact your medical provider and/or outpatient psychiatrist to have this done. Please go to scheduled outpatient appointment for aftercare treatment. If symptoms return or become worse, call the crisis line at and/or go to the nearest emergency room for evaluation Discharge Disposition: HOME SELF-CARE
[2022-03-24] MEDS ORDERED: METOPROLOL SUCCINATE (ER) 25 MG TAB.ER.24H PO SCH (09:00)
== END 2022-03-23 13:44 | disposition home or self-care (01) | DRG 881 ==
LOC: 3MHU 22:19
PROVIDERS: ADMIT Psychiatry & Neurology Psychiatry; ATTEND Psychiatry & Neurology Psychiatry
DX: F32.9 Major depressive disorder, single episode, unspecified (principal); F25.9 Schizoaffective disorder, unspecified; F31.9 Bipolar disorder, unspecified; F41.1 Generalized anxiety disorder; G47.00 Insomnia, unspecified; I10 Essential (primary) hypertension; S51.811A Laceration without foreign body of right forearm, initial encounter; S51.812A Laceration without foreign body of left forearm, initial encounter; S61.511A Laceration without foreign body of right wrist, initial encounter; S61.512A Laceration without foreign body of left wrist, initial encounter; X78.8XXA Intentional self-harm by other sharp object, initial encounter; Z79.899 Other long term (current) drug therapy; Z91.52 Personal history of nonsuicidal self-harm